=== PATIENT | female | born 1930 | race Caucasian/White ===

== ENCOUNTER → 2016-08-22 | Outpatient (CLI) | payer MEDICARE, BC ==
--- NOTE | 2016-08-22 14:34 | XR ---
EXAMINATION TYPE: XR chest 2V DATE OF EXAM: 08/22/2016 2:15 PM COMPARISON: Prior chest x-ray March 31, 2016. HISTORY: Cough TECHNIQUE: Frontal and lateral views of the chest are obtained. FINDINGS: There is chronic parenchymal change without suspicious focal air space opacity, pleural ef fusion, or pneumothorax seen. The cardiac silhouette size is stable and within normal limits. The osseous structures are demineralized. IMPRESSION: Chronic changes without acute pulmonary process. No significant change from prior.
== END | disposition home or self-care (01) ==
LOC: RADXRMAIN 13:55
PROVIDERS: ATTEND Family Medicine
DX: J44.1 Chronic obstructive pulmonary disease with (acute) exacerbation (principal); R91.8 Other nonspecific abnormal finding of lung field
CPT/HCPCS: 71020

== ENCOUNTER → 2016-12-01 | Outpatient (CLI) | payer MEDICARE, BC ==
--- NOTE | 2016-12-01 10:01 | CT ---
EXAMINATION TYPE: CT sinus wo con DATE OF EXAM: 12/01/2016 9:40 AM COMPARISON: NONE HISTORY: Chronic Sinusitis CT DLP: 622.3 mGycm CONTRAST: 0 mL of Omnipaque 300 The paranasal sinuses are examined in the axial plane at 2 mm thick sections. Reconstructed images i n the coronal plane were obtained. There is dental amalgam scatter artifact Mucous retention cyst in mucosal thickening is within the bilateral maxillary sinuses. Note is made o f bilateral hermelindo bullosa. The ethmoid air cells are clear. The sphenoid sinuses are clear. The f rontal sinuses are clear. The septum is evaluated. There is septal deviation to the right. The ostiomeatal units are patent. Note is made of hyperostosis frontalis internus, normal variant. IMPRESSIONS: 1. Mucosal thickening and small retention cyst within the bilateral maxillary sinuses.
--- NOTE | 2016-12-01 10:17 | FL ---
Esophagram INDICATION: Cough, phlegm buildup TECHNIQUE: Double air contrast technique Double air-contrast technique is utilized to evaluate the esophagus. Esophagus dilates to normal caliber has normal contour to the gastroesophageal junction. Gastroesopha geal junction opens to normal caliber. Tiny hiatal hernia is present. There is complete stripping of the esophageal bolus in the horizontal drinking position. Couple of tertiary contractions may be pres ent during the examination. No reflux was identified. IMPRESSIONS: 1. Very minimal presbyesophagus. 2. Small hiatal hernia
== END | disposition home or self-care (01) ==
LOC: RADCTMAIN 09:20
PROVIDERS: ATTEND Otolaryngology
DX: J34.1 Cyst and mucocele of nose and nasal sinus (principal); J34.89 Other specified disorders of nose and nasal sinuses; R05 Cough
CPT/HCPCS: 70486; 74220

== ENCOUNTER → 2017-07-02 | Outpatient (CLI) | payer MEDICARE, BC ==
--- NOTE | 2017-07-03 09:40 | MM ---
Reason for exam: screening (asymptomatic). Last mammogram was performed 1 year and 2 months ago. History: Patient is postmenopausal. Physical Findings: A clinical breast exam by your physician is recommended on an annual basis and results should be correlated with mammographic findings. MG Screening Mammo w CAD Bilateral CC and MLO view(s) were taken. Prior study comparison: April 22, 2016, bilateral MG screening mammo w CAD. March 05, 2015, bilateral MG screening mammo w CAD. There are scattered fibroglandular densities. Finding: There are typically benign calcifications in both breasts. No significant changes in finding since April 22, 2016 and March 05, 2015. ASSESSMENT: Benign, BI-RAD 2 RECOMMENDATION: Routine screening mammogram of both breasts in 1 year.
== END | disposition home or self-care (01) ==
LOC: RADMAMWWP 13:39
PROVIDERS: ATTEND Family Medicine
DX: Z12.31 Encounter for screening mammogram for malignant neoplasm of breast (principal)

== ENCOUNTER → 2017-08-19 | Outpatient (CLI) | payer MEDICARE ==
[2017-08-19 10:32] LABS: Basophils % (A) 0 %; Eosinophils # (A) 0.1 k/uL (0-0.7); Eosinophils % (A) 1 %; HCT 40.4 % (34.0-46.0); Lymphocytes # (A) 1.6 k/uL (1.0-4.8); Lymphocytes % (A) 19 %; MCH 32.1 pg (25.0-35.0); MCHC 32.2 g/dL (31.0-37.0); MCV 99.8 fL (80.0-100.0); Mean Platelet Volume 7.1; Monocytes # (A) 0.6 k/uL (0-1.0); Monocytes % (A) 7 %; Neutrophils # (A) 5.7 k/uL (1.3-7.7); Neutrophils % (A) 70 %; Platelet Count 211 k/uL (150-450); RBC 4.05 m/uL (3.80-5.40); RDW 12.9 % (11.5-15.5); WBC 8.2 k/uL (3.8-10.6)
[2017-08-19 11:00] LABS: Albumin 3.9 g/dL (3.5-5.0); Calcium 10.4 mg/dL (8.4-10.2); Magnesium 2.2 mg/dL (1.6-2.3); Potassium 5.2 mmol/L (3.5-5.1); Total Bilirubin 0.5 mg/dL (0.2-1.3); Total Protein 6.5 g/dL (6.3-8.2)
[2017-08-19 11:14] LABS: T4, Free (Free Thyroxine) 1.25 ng/dL (0.78-2.19)
[2017-08-19 16:08] LABS: Iron Saturation 37.58 (12.00-45.00)
[2017-08-19 16:17] LABS: Vitamin D 25 Hydroxy 32.1 ng/mL (30.0-100.0)
== END | disposition home or self-care (01) ==
LOC: LABWHC1 09:36
PROVIDERS: ATTEND Family Medicine
DX: N18.3 Chronic kidney disease, stage 3 (moderate) (principal); M85.9 Disorder of bone density and structure, unspecified; J44.9 Chronic obstructive pulmonary disease, unspecified; R25.2 Cramp and spasm
CPT/HCPCS: 36415; 80053; 80061; 82306; 82550; 82607; 83540; 83550; 83735; 84439; 84443; 85025

== ENCOUNTER → 2017-09-08 | Outpatient (CLI) | payer MEDICARE ==
--- NOTE | 2017-09-08 11:21 | US ---
EXAMINATION TYPE: US kidneys/renal and bladder DATE OF EXAM: 09/08/2017 COMPARISON: NONE CLINICAL HISTORY: Stage 3 Chronic Kidney Disease N18.3. EXAM MEASUREMENTS: Right Kidney: 8.5 x 3.3 x 3.9 cm Left Kidney: 7.5 x 3.7 x 3.3 cm Post Void Residual Volume: no post void collection identified Right Kidney: Inferior pole obscured by bowel gas, No hydronephrosis or masses seen, atrophied Left Kidney: very lobular contour, inferior pole obscured by bowel gas, prominent renal pelvis, atrop hied Bladder: wnl Bilateral Jets seen: right seen, left not visualized Normal Post Void Residual: unable to see an fluid post void, however some overlying bowel gas obscu ring area There is no evidence for hydronephrosis at this point in time. Mild fullness left renal pelvis withou t alexis hydronephrosis. No nephrolithiasis is seen. No masses are identified. The urinary bladder i s anechoic. IMPRESSION: 1. Atrophic kidneys. 2.Mild fullness left renal pelvis without alexis hydronephrosis.
== END | disposition home or self-care (01) ==
LOC: RADUSMAIN 09:19
PROVIDERS: ATTEND Family Medicine
DX: N26.1 Atrophy of kidney (terminal) (principal); R93.41 Abnormal radiologic findings on diagnostic imaging of renal pelvis, ureter, or bladder; N18.3 Chronic kidney disease, stage 3 (moderate)
CPT/HCPCS: 76770

== ENCOUNTER → 2017-09-16 | Outpatient (CLI) | payer MEDICARE ==
--- NOTE | 2017-09-16 14:25 | CT ---
EXAMINATION TYPE: CT abdomen pelvis wo con DATE OF EXAM: 09/16/2017 HISTORY: Follow up for abnormal US. No complaints at time of scan CT DLP: 855 mGycm. Automated Exposure Control for Dose Reduction was Utilized. TECHNIQUE: CT scan of the abdomen and pelvis is performed without oral or IV contrast. COMPARISON: Renal ultrasound September 08, 2017 FINDINGS: Within the limitations of a non-contrast study, the following observations are made. LUNG BASES: There is coronary artery calcification in the RCA distribution. There is tiny pericardial effusion there are apex. There is mild chronic emphysematous change with scattered bibasilar scarrin g and/or fibrosis. LIVER/GB: No significant abnormality is appreciated. PANCREAS: No significant abnormality is seen. SPLEEN: No significant abnormality is seen. ADRENALS: No significant abnormality is seen. KIDNEYS: Correlating with ultrasound there is some atrophy and cortical thinning in both kidneys with left kidney smaller in size versus right kidney with similar measurements noted on coronal images ve rsus ultrasound. No hydronephrosis however is seen bilaterally on CT. No suspicious renal masses are present. BOWEL: Debris-filled stomach suggest recent meal ingestion. There is no suspicious small or large bow el dilatation. Diverticulosis in the sigmoid colon is identified without CT evidence for acute divert iculitis. Normal-appearing appendix is seen from the cecum in the right upper pelvis. GENITAL ORGANS: Uterus is surgically absent or markedly atrophic in appearance. LYMPH NODES: No greater than 1cm abdominal or pelvic lymph nodes are appreciated. OSSEOUS STRUCTURES: Osseous structures are demineralized. Underlying scoliosis is present. There is h emangioma involving right L1 vertebra. There is marked disc space narrowing L4-L5 and L5-S1 levels wi th vacuum disc phenomenon. There is moderate joint space loss in both hips. OTHER: There is moderate calcified plaque of aorta extending into branch vessels. IMPRESSION: Chronic medical renal disease in both kidneys without hydronephrosis identified bilateral ly.
== END | disposition home or self-care (01) ==
LOC: RADCTMAIN 13:00
PROVIDERS: ATTEND Family Medicine
DX: N18.9 Chronic kidney disease, unspecified (principal); Q63.1 Lobulated, fused and horseshoe kidney
CPT/HCPCS: 74176

== ENCOUNTER → 2017-11-10 | Outpatient (CLI) | payer MEDICARE ==
--- NOTE | 2017-11-10 23:20 | US ---
EXAMINATION TYPE: US carotid duplex BILAT DATE OF EXAM: 11/10/2017 COMPARISON: NONE CLINICAL HISTORY: 87-year-old female G45.9 Transient cerebral ischemic attack, unspecified. Patient s tated TIA was 10 to 15 years ago. TECHNIQUE: Carotid duplex ultrasound examination. Indirect Doppler criteria was utilized. FINDINGS: EXAM MEASUREMENTS: RIGHT: Peak Systolic Velocity (PSV) cm/sec ----- Right CCA: 56.4 ----- Right ICA: 82.0 ----- Right ECA: 88.1 ICA/CCA ratio: 1.5 RIGHT: End Diastole cm/sec ----- Right CCA: 0.0 ----- Right ICA: 13.8 ----- Right ECA: 0.0 LEFT: Peak Systolic Velocity (PSV) cm/sec ----- Left CCA: 67.7 ----- Left ICA: 71.2 ----- Left ECA: 80.2 ICA/CCA ratio: 1.1 LEFT: End Diastole cm/sec ----- Left CCA: 14.5 ----- Left ICA: 12.7 ----- Left ECA: 12.2 VERTEBRALS (direction of flow): Right Vertebral: Antegrade Left Vertebral: Antegrade Rhythm: Normal Auditing Manager notes: Mild to moderate intimal wall changes at bilateral carotid bifurcation, but PSV is wnl bilaterally. IMPRESSION: No hemodynamically significant stenosis appreciated in either internal carotid artery. Criteria for Assigning % of Stenosis / Diameter reduction (Estimation based on the indirect measurements of the internal carotid artery velocities (ICA PSV). 1. Normal (no stenosis)=ICA PSV < 125 cm/s: ratio < 2.0: ICA EDV<40 cm/s. 2. Less than 50% stenosis=ICA PSV < 125 cm/s: ratio < 2.0: ICA EDV<40 cm/s. 3. 50 to 69% stenosis=ICA PSV of 125 to 230 cm/s: ration 2.0 ? 4.0: ICA EDV 40-100 cm/s. 4. Greater than 70% stenosis to near occlusion= ICA PSV > 230 cm/s: ratio > 4.0: ICA EDV > 100 cm/s. 5. Near occlusion= ICA PSV velocities may be low or undetectable: variable ratio and ICA EDV. 6. Total occlusion=unable to detect flow.
== END | disposition home or self-care (01) ==
LOC: RADUSWWP 15:13
PROVIDERS: ATTEND Internal Medicine Geriatric Medicine
DX: G45.9 Transient cerebral ischemic attack, unspecified (principal)
CPT/HCPCS: 93880

== ENCOUNTER → 2018-06-01 | Outpatient (CLI) | payer MEDICARE ==
[2018-06-01 11:13] LABS: Albumin 3.7 g/dL (3.5-5.0); Calcium 9.9 mg/dL (8.4-10.2); Phosphorus 3.8 mg/dL (2.5-4.5); Potassium 5.1 mmol/L (3.5-5.1); Total Bilirubin 0.5 mg/dL (0.2-1.3); Total Protein 6.5 g/dL (6.3-8.2); Uric Acid 6.1 mg/dL (3.7-7.4)
[2018-06-01 11:29] LABS: T4, Free (Free Thyroxine) 1.18 ng/dL (0.78-2.19)
[2018-06-01 11:45] LABS: Basophils % (A) 0 %; Eosinophils # (A) 0.1 k/uL (0-0.7); Eosinophils % (A) 1 %; HCT 39.1 % (34.0-46.0); Lymphocytes # (A) 1.4 k/uL (1.0-4.8); Lymphocytes % (A) 19 %; MCH 33.2 pg (25.0-35.0); MCHC 33.2 g/dL (31.0-37.0); MCV 100.2 fL (80.0-100.0); Mean Platelet Volume 7.5; Monocytes # (A) 0.5 k/uL (0-1.0); Monocytes % (A) 7 %; Neutrophils # (A) 5.1 k/uL (1.3-7.7); Neutrophils % (A) 71 %; Platelet Count 205 k/uL (150-450); RDW 12.5 % (11.5-15.5); WBC 7.3 k/uL (3.8-10.6)
[2018-06-01 21:26] LABS: Hemoglobin A1C 6.1 % (4.0-6.0)
== END | disposition home or self-care (01) ==
LOC: LABWHC1 09:46
PROVIDERS: ATTEND Family Medicine
DX: I12.9 Hypertensive chronic kidney disease with stage 1 through stage 4 chronic kidney disease, or unspecified chronic kidney disease (principal); N18.3 Chronic kidney disease, stage 3 (moderate); E78.5 Hyperlipidemia, unspecified; R73.01 Impaired fasting glucose
CPT/HCPCS: 36415; 80053; 80061; 83036; 84100; 84439; 84443; 84550; 85025

== ENCOUNTER → 2018-06-22 | Outpatient (CLI) | payer MEDICARE ==
--- NOTE | 2018-06-22 13:06 | MM ---
Reason for exam: screening (asymptomatic). Last mammogram was performed 1 year ago. History: Patient is postmenopausal. Physical Findings: A clinical breast exam by your physician is recommended on an annual basis and results should be correlated with mammographic findings. MG 3D Screening Mammo W/Cad Bilateral CC and MLO view(s) were taken. Prior study comparison: July 02, 2017, bilateral MG screening mammo w CAD. April 22, 2016, bilateral MG screening mammo w CAD. There are scattered fibroglandular densities. There are benign appearing vascular calcifications bilaterally. There is no discrete abnormality. ASSESSMENT: Benign, BI-RAD 2 RECOMMENDATION: Routine screening mammogram of both breasts in 1 year.
== END ==
LOC: RADMAMWWP 09:51
PROVIDERS: ATTEND Family Medicine
DX: Z12.31 Encounter for screening mammogram for malignant neoplasm of breast (principal)
CPT/HCPCS: 77063; 77067

== ENCOUNTER → 2018-06-28 | Outpatient (CLI) | payer MEDICARE ==
--- NOTE | 2018-06-28 15:41 | BD ---
EXAMINATION TYPE: Axial Bone Density DATE OF EXAM: 06/28/2018 COMPARISON: NONE CLINICAL HISTORY: Known osteoporosis, M 81.0 Height: 4 FT 4 IN Weight: 155 RISK FACTORS HISTORY OF: Active: YES Postmenopausal woman: PART HYST AGE 39 Lost more than 2 inches in height since high school: YES MEDICATIONS: Additional Medications: BLOOD PRESSURE MEDS, CHOLESEROL MEDS, XANAX,BABY ASPIRIN, MONTELKAST, CALCIUM , VALSARTAN, Additional History: EXAM MEASUREMENTS: Bone mineral densitometry was performed using the Exhibition A System. Bone mineral density as measured about the Lumbar spine is: ----- L1-L4(G/cm2): 1.057 T Score Values are as follows: ----- L2: -0.5 ----- L3: -1.1 ----- L4: 0.6 ----- L1-L4: -0.4 Bone mineral density has: INCREASED 3.6 % since study of: 2015 Bone mineral density about the R hip (g/cm2): 0.952 Bone mineral density about the L hip (g/cm2): 0.926 T Score values are as follows: -----R Neck: -0.6 -----L Neck: -0.8 -----R Total: 0.0 -----L Total: -0.2 Bone mineral density has: DECREASED -4.6 % since study of: 2015 IMPRESSION: Osteopenia (T Score between -2.5 and -1) at L3. There is slightly increased risk of fracture and the patient may be considered for treatment. Re-Screen 2-5 years. NOTE: T-SCORE=SD OF THE YOUNG ADULT MEAN.
== END ==
LOC: RADBDWWP 14:27
PROVIDERS: ATTEND Family Medicine
DX: M85.80 Other specified disorders of bone density and structure, unspecified site (principal); M89.9 Disorder of bone, unspecified
CPT/HCPCS: 77080

== ENCOUNTER 2018-09-28 10:59 | Inpatient (IN) | payer MEDICARE ==
--- NOTE | 2018-09-28 11:33 | ED ---
General Adult HPI - General Chief complaint: Weakness Stated complaint: weak/SOB/chills Time Seen by Provider: 09/28/18 11:25 Source: patient, family, RN notes reviewed Mode of arrival: wheelchair Limitations: no limitations - History of Present Illness Initial comments: Patient is a pleasant 87-year-old female presenting to the emergency Department with complaints of cough and dyspnea. Symptoms started several days ago. Patient did see her doctor and states she was diagnosed with a virus and given azithromycin. Patient has continued cough. Cough has yellow sputum, occasionally green. Patient has chills. Patient does have some shortness of breath that increases with exertion, even after walking only 10 feet or so. No leg pain or leg swelling. No chest pain. - Related Data Home Medications Medication Instructions Recorded Confirmed Aspirin EC [Ecotrin Low Dose] 162 mg PO HS 10/05/15 09/28/18 Atorvastatin [Lipitor] 10 mg PO HS 10/05/15 09/28/18 Calcium/Magnesium/Zinc 1 tab PO DAILY 10/05/15 09/28/18 [Kzqoluw-Ijjlnawte-Yclv Tablet] Multivit-Min/FA/Lycopen/Lutein 1 tab PO DAILY 10/05/15 09/28/18 [Centrum Silver Tablet] ALPRAZolam [Xanax] 0.25 mg PO BID PRN 11/18/15 09/28/18 Carboxymethylcellulose Sodium 1 drop BOTH EYES QID PRN 09/28/18 09/28/18 [Refresh Tears] Cyanocobalamin (Vitamin B-12) 1,000 mcg PO MOWEFR 09/28/18 09/28/18 [Vitamin B-12] Fluticasone Nasal [place] [Flonase 1 spray EA NOSTRIL HS 09/28/18 09/28/18 Nasal [place]] Glucosamine-Chondr 500-400Mg 1 tab PO DAILY 09/28/18 09/28/18 Montelukast Sodium [Singulair] 10 mg PO HS 09/28/18 09/28/18 Valsartan 80 mg PO HS 09/28/18 09/28/18 Allergies Allergy/AdvReac Type Severity Reaction Status Date / Time No Known Allergies Allergy Verified 09/28/18 12:36 Review of Systems ROS Statement: Those systems with pertinent positive or pertinent negative responses have been documented in the HPI. ROS Other: All systems not noted in ROS Statement are negative. Constitutional: Reports: chills Eyes: Denies: eye pain ENT: Denies: ear pain Respiratory: Reports: cough, dyspnea Cardiovascular: Denies: chest pain Endocrine: Reports: fatigue Gastrointestinal: Denies: abdominal pain Genitourinary: Denies: dysuria Musculoskeletal: Denies: back pain Skin: Denies: rash Neurological: Denies: headache Past Medical History Past Medical History: CVA/TIA, GERD/Reflux, Hyperlipidemia, Hypertension, Osteoarthritis (OA) Additional Past Medical History / Comment(s): CONSTIPATION, TIA History of Any Multi-Drug Resistant Organisms: None Reported Past Surgical History: Joint Replacement, Orthopedic Surgery Additional Past Surgical History / Comment(s): NITO CATARACTS,NITO KNEE REPLACMENT ,TOTAL HYSTERECTOMY.d and c Past Anesthesia/Blood Transfusion Reactions: No Reported Reaction Past Psychological History: Anxiety Smoking Status: Never smoker Past Alcohol Use History: Rare Past Drug Use History: None Reported - Past Family History Father Family Medical History: CVA/TIA Mother Family Medical History: CVA/TIA Son(s) Family Medical History: Diabetes Mellitus Sister(s) Family Medical History: Cancer, Diabetes Mellitus General Exam Limitations: no limitations General appearance: alert, in no apparent distress Head exam: Present: atraumatic Eye exam: Present: normal appearance, PERRL ENT exam: Present: normal oropharynx Neck exam: Present: normal inspection Respiratory exam: Present: rales (Mild right base) Cardiovascular Exam: Present: regular rate, normal rhythm GI/Abdominal exam: Present: soft. Absent: distended, tenderness Extremities exam: Present: normal inspection. Absent: pedal edema, calf tenderness Neurological exam: Present: alert Psychiatric exam: Present: normal affect, normal mood Skin exam: Present: normal color Course Vital Signs 09/28/18 11:18 Temperature 99.3 F Pulse Rate 70 Respiratory 16 Rate Blood Pressure 119/69 O2 Sat by Pulse 84 L Oximetry Medical Decision Making - Medical Decision Making Patient reevaluated and is resting somewhat more comfortably in bed. Patient and family are updated on results and plan. Case was discussed in detail with Dr. Vyas, who will admit her patient with IV antibiotics and steroids and nebulizer treatments. - Lab Data Result diagrams: 09/28/18 11:55 09/28/18 11:55 Lab Results 09/28/18 09/28/18 09/28/18 Range/Units 11:55 11:55 11:55 WBC 19.8 H (3.8-10.6) k/uL RBC 3.96 (3.80-5.40) m/uL Hgb 12.6 (11.4-16.0) gm/dL Hct 39.0 (34.0-46.0) % MCV 98.5 (80.0-100.0) fL MCH 31.7 (25.0-35.0) pg MCHC 32.2 (31.0-37.0) g/dL RDW 13.0 (11.5-15.5) % Plt Count 252 (150-450) k/uL Neutrophils % 90 % Lymphocytes % 6 % Monocytes % 3 % Eosinophils % 0 % Basophils % 0 % Neutrophils # 17.8 H (1.3-7.7) k/uL Lymphocytes # 1.1 (1.0-4.8) k/uL Monocytes # 0.6 (0-1.0) k/uL Eosinophils # 0.0 (0-0.7) k/uL Basophils # 0.0 (0-0.2) k/uL PT (9.0-12.0) sec INR (<1.2) APTT (22.0-30.0) sec Sodium 138 (137-145) mmol/L Potassium 4.5 (3.5-5.1) mmol/L Chloride 108 H (98-107) mmol/L Carbon Dioxide 20 L (22-30) mmol/L Anion Gap 10 mmol/L BUN 27 H (7-17) mg/dL Creatinine 1.11 H (0.52-1.04) mg/dL Est GFR (CKD-EPI)AfAm 52 (>60 ml/min/1.73 sqM) Est GFR (CKD-EPI)NonAf 45 (>60 ml/min/1.73 sqM) Glucose 105 H (74-99) mg/dL Plasma Lactic Acid Sammy (0.7-2.0) mmol/L Calcium 10.4 H (8.4-10.2) mg/dL Total Bilirubin 0.7 (0.2-1.3) mg/dL AST 29 (14-36) U/L ALT 29 (9-52) U/L Alkaline Phosphatase 80 (38-126) U/L Total Protein 6.8 (6.3-8.2) g/dL Albumin 3.9 (3.5-5.0) g/dL Influenza Type A RNA Not Detected (Not Detectd) Influenza Type B (PCR) Not Detected (Not Detectd) 09/28/18 09/28/18 Range/Units 11:55 11:57 WBC (3.8-10.6) k/uL RBC (3.80-5.40) m/uL Hgb (11.4-16.0) gm/dL Hct (34.0-46.0) % MCV (80.0-100.0) fL MCH (25.0-35.0) pg MCHC (31.0-37.0) g/dL RDW (11.5-15.5) % Plt Count (150-450) k/uL Neutrophils % % Lymphocytes % % Monocytes % % Eosinophils % % Basophils % % Neutrophils # (1.3-7.7) k/uL Lymphocytes # (1.0-4.8) k/uL Monocytes # (0-1.0) k/uL Eosinophils # (0-0.7) k/uL Basophils # (0-0.2) k/uL PT 9.8 (9.0-12.0) sec INR 0.9 (<1.2) APTT 19.1 L (22.0-30.0) sec Sodium (137-145) mmol/L Potassium (3.5-5.1) mmol/L Chloride (98-107) mmol/L Carbon Dioxide (22-30) mmol/L Anion Gap mmol/L BUN (7-17) mg/dL Creatinine (0.52-1.04) mg/dL Est GFR (CKD-EPI)AfAm (>60 ml/min/1.73 sqM) Est GFR (CKD-EPI)NonAf (>60 ml/min/1.73 sqM) Glucose (74-99) mg/dL Plasma Lactic Acid Sammy 1.6 (0.7-2.0) mmol/L Calcium (8.4-10.2) mg/dL Total Bilirubin (0.2-1.3) mg/dL AST (14-36) U/L ALT (9-52) U/L Alkaline Phosphatase (38-126) U/L Total Protein (6.3-8.2) g/dL Albumin (3.5-5.0) g/dL Influenza Type A RNA (Not Detectd) Influenza Type B (PCR) (Not Detectd) - Radiology Data Radiology results: image reviewed (Chest x-ray shows diffuse interstitial lung disease. Infectious signs should consider viral or atypical pneumonia. Right hilar prominence.) Disposition Clinical Impression: Interstitial pneumonia Disposition: ADMITTED IP TO THIS HOSP Is patient prescribed a controlled substance at d/c from ED?: No Referrals: Lamar Vyas MD [Primary Care Provider] - 1-2 days Decision Time: 13:50
[2018-09-28] MEDS ORDERED: ACETAMINOPHEN TAB 500 MG TAB PO STA (11:37)
[2018-09-28 12:18] LABS: Basophils % (A) 0 %; Eosinophils % (A) 0 %; HGB 12.6 gm/dL (11.4-16.0); Lymphocytes # (A) 1.1 k/uL (1.0-4.8); Lymphocytes % (A) 6 %; MCH 31.7 pg (25.0-35.0); MCHC 32.2 g/dL (31.0-37.0); MCV 98.5 fL (80.0-100.0); Mean Platelet Volume 6.7; Monocytes # (A) 0.6 k/uL (0-1.0); Monocytes % (A) 3 %; Neutrophils # (A) 17.8 k/uL (1.3-7.7); Neutrophils % (A) 90 %; Platelet Count 252 k/uL (150-450); RBC 3.96 m/uL (3.80-5.40); WBC 19.8 k/uL (3.8-10.6)
[2018-09-28 12:28] LABS: Albumin 3.9 g/dL (3.5-5.0); Calcium 10.4 mg/dL (8.4-10.2); Potassium 4.5 mmol/L (3.5-5.1); Total Bilirubin 0.7 mg/dL (0.2-1.3); Total Protein 6.8 g/dL (6.3-8.2)
[2018-09-28 12:36] LABS: INR 0.9 (<1.2); Prothrombin Time 9.8 sec (9.0-12.0)
[2018-09-28 12:39] LABS: Partial Thromboplastin Time 19.1 sec (22.0-30.0)
--- NOTE | 2018-09-28 12:46 | XR ---
EXAMINATION TYPE: XR chest 2V DATE OF EXAM: 09/28/2018 COMPARISON: 08/22/2016 HISTORY: 87-year-old female with fever TECHNIQUE: PA and lateral views FINDINGS: Heart upper limits of normal in size. Aorta within normal limits. New diffuse interstitial opacities. Right hilar prominence. Subtle more patchy at the right midlung. Essentially mid thoracic kyphosis i s similar. No pleural effusion. IMPRESSION: 1. New diffuse interstitial lung disease. If there are infectious signs/symptoms, findings could repr esent viral or other atypical pneumonias. 2. Follow-up after treatment to ensure clearance and to reassess the right hilum. If right hilar prom inence persists, contrast-enhanced CT would be recommended.
[2018-09-28] MEDS ORDERED: IPRATROPIUM-ALBUTEROL 3 ML NEB INHALATION PRN (13:50)
[2018-09-28] MEDS ORDERED: PNEUMONIA PROTOCOL UTILIZED 1 EACH MISC PO PRN (13:50)
[2018-09-28] MEDS ORDERED: methylPREDNISolone SOD SUCCI 125 MG/2 ML VIAL IV STA (13:52)
[2018-09-28] MEDS ORDERED: AZITHROMYCIN 500 MG in SODIUM CHLORIDE 0.9% 250 ML IVPB STA (13:54)
[2018-09-28 14:45] LABS: Amorphous Sediment,Urine Rare /hpf; Appearance,Urine Cloudy (Clear); Bacteria,Urine Rare /hpf; Bilirubin,Urine Negative (Negative); Blood,Urine Trace (Negative); Color,Urine Yellow; Glucose,Urine (UA) Negative (Negative); Hyaline Casts,Urine 21 /lpf (0-2); Ketones,Urine 1+ (Negative); Leukocyte Esterase,Urine Trace (Negative); Mucus,Urine Few /hpf; Nitrite,Urine Negative (Negative); Protein,Urine 1+ (Negative); RBC,Urine 5 /hpf (0-5); Specific Gravity,Urine 1.021 (1.001-1.035); Squamous Epithelial Cell,Urine 1 /hpf (0-4); Urobilinogen,Urine <2.0 mg/dL (<2.0); WBC,Urine 4 /hpf (0-5)
[2018-09-28] MEDS ORDERED: ARTIFICIAL TEARS-HYPROMELLOSE DROPS 15 ML BTL BOTH EYES PRN (14:57)
[2018-09-28 15:10] VITALS: BMI 31.1
[2018-09-28] MEDS: IPRATROPIUM-ALBUTEROL 3 ML NEB INHALATION SCH ×2 (16:47→21:10)
[2018-09-28] MEDS: INSULIN ASPART (NovoLOG) 100 UNIT/ML VIAL SQ SCH ×2 (17:10→21:09)
[2018-09-28] MEDS: methylPREDNISolone SOD SUCCI 125 MG/2 ML VIAL IV SCH ×2 (17:11→23:51)
[2018-09-28 17:14] LABS: Glucose,Whole Blood 129 mg/dL (75-99)
[2018-09-28 20:58] LABS: Glucose,Whole Blood 190 mg/dL (75-99)
[2018-09-28] MEDS: ATORVASTATIN 10 MG TAB PO SCH (21:08)
[2018-09-28] MEDS: ASPIRIN 81 MG PO SCH (21:08)
[2018-09-28] MEDS: FLUTICASONE 50MCG/SPRAY NASAL 16GM EA NOSTRIL SCH (21:08)
[2018-09-28] MEDS: MONTELUKAST 10 MG TAB PO SCH (21:09)
[2018-09-28] MEDS: VALSARTAN 80 MG TAB PO SCH (21:10)
[2018-09-28 22:15] LABS: Hemoglobin A1C 6.2 % (4.0-6.0)
[2018-09-29] MEDS: methylPREDNISolone SOD SUCCI 125 MG/2 ML VIAL IV SCH ×4 (05:22→23:46)
[2018-09-29] MEDS: IPRATROPIUM-ALBUTEROL 3 ML NEB INHALATION SCH ×4 (07:28→19:19)
[2018-09-29] MEDS: INSULIN ASPART (NovoLOG) 100 UNIT/ML VIAL SQ SCH ×4 (07:38→22:02)
[2018-09-29 07:39] LABS: Glucose,Whole Blood 156 mg/dL (75-99)
[2018-09-29] MEDS: AZITHROMYCIN 500 MG TAB PO SCH (07:40)
[2018-09-29] MEDS: Calcium-Magnesium-Zinc Tablet PO SCH (07:41)
[2018-09-29] MEDS: ALPRAZolam 0.25 MG TAB PO PRN (07:42)
--- NOTE | 2018-09-29 08:23 | XR ---
EXAMINATION TYPE: XR chest 2V DATE OF EXAM: 09/29/2018 COMPARISON: 09/28/2018 HISTORY: 87-year-old female follow-up pneumonia TECHNIQUE: Frontal and lateral views FINDINGS: Heart borderline enlarged. Interstitial lung disease persists and may be slightly worsened. Some patc hy posterior basilar density is present on the lateral view. No sizable pleural effusion. Previous right perihilar prominence is not as pronounced on the current study. IMPRESSION: Redemonstrated acute interstitial lung disease which could be secondary to interstitial pulmonary janet ma, interstitial pneumonitis, or atypical pneumonias. Interstitial opacities appear stable to slightl y worsened.
--- NOTE | 2018-09-29 11:34 | CT ---
EXAMINATION TYPE: CT chest wo con DATE OF EXAM: 09/29/2018 COMPARISON: CT 10/05/2015 and radiograph same day HISTORY: 87-year-old female atypical Pneumonia. Difficulty breathing. Assess for pulmonary fibrosis TECHNIQUE: Contiguous high-resolution axial scanning of the chest without IV contrast. 1 mm slice thi ckness with 1 cm gap was utilized per HRCT protocol. Imaging performed in both prone and supine posit ioning. CT DLP: 458 mGycm Automated exposure control for dose reduction was used. FINDINGS: Heart upper limits of normal in size without pericardial effusion. Coronary vessel calcifications are present. Mild atherosclerotic arch calcifications. Right tracheobronchial angle lymph node measures 8 m. No definite thoracic lymphadenopathy by CT size criteria though HRCT technique and lack of contrast limits assessment. Increased interstitial densities diffusely with confluent groundglass particularly in the upper midlu ngs but also with some involvement in the lower lungs. HRCT technique limited for assessment of pulmonary nodules. No pleural effusion. Moderate atherosclerotic calcifications at the thoracoabdominal junction. Visualized upper abdomen sh ows no gross abnormality by HRCT technique. No honeycombing, thickening of the bronchovascular bundle s, or dominant cystic changes. Stable lucency involving the L1 vertebral body. Endplate spondylosis midthoracic spine. IMPRESSION: RETICULAR DENSITIES AND UPPER TO MIDLUNG PREDOMINANT GROUNDGLASS. SOME DIFFERENTIAL CONSIDERATIONS IN CLUDE NSIP, HYPERSENSITIVITY PNEUMONITIS, AND ATYPICAL PNEUMONIAS. FURTHER CLINICAL CORRELATION RECOM MENDED.
[2018-09-29] MEDS: MULTIVITAMINS, THERA 1 EACH TAB PO SCH (11:35)
[2018-09-29] MEDS: CYANOCOBALAMIN 500 MCG TAB PO SCH (11:35)
[2018-09-29 12:41] LABS: Glucose,Whole Blood 192 mg/dL (75-99)
--- NOTE | 2018-09-29 12:44 | P.HPIM ---
History of Present Illness H&P Date: 09/29/18 Chief Complaint: weakness This is an 87-year-old female patient of Dr. Vyas with past medical history of hypertension, hyperlipidemia, mild persistent asthma, generalized osteoarthritis. Patient gives history of onset Thursday at 5 PM of chills lasted for 1-2 hours. This went away but returned on Thursday and she had chills again. She also has had a cough since with some shortness of breath. At that time she was given prescription for azithromycin which did not help. Her cough is productive with green or yellow sputum usually in the mornings but today her sputum is clear. She called the doctor's office on Thursday/Thursday but the office was closed. She came into the [facility] emergency center for evaluation. She was afebrile, blood pressure 119/69, pulse ox 84%. White count was 19.8, BUN 27 creatinine 1.11, blood sugar 105. Influenza testing was negative. Lactic acid normal. Chest x-ray shows new diffuse interstitial lung disease. Could represent viral or atypical pneumonias. There is a hilar prominence persist. [facility] and started on azithromycin and ceftriaxone as well as nebulizer treatments and Pulmicort, IV steroids. Repeat chest x-ray this morning showed redemonstrated acute interstitial lung disease which could represent interstitial pulmonary edema, interstitial pneumonitis or atypical pneumonia. Interstitial opacities appear stable to slightly worse. High-resolution CT of the chest revealed reticular densities and upper to mid lung predominant groundglass. Some differential considerations include an SIP, hypersensitivity pneumonitis and atypical pneumonias. Review of Systems All systems: negative Constitutional: Reports fatigue, Denies chills, Denies fever, Denies poor appetite, Denies weight loss Eyes: denies blurred vision, denies pain Ears, nose, mouth and throat: Denies dysphagia, Denies headache, Denies sore throat, Denies vertigo Cardiovascular: Denies chest pain, Denies dyspnea on exertion, Denies edema, Denies leg edema, Denies lightheadedness, Denies palpitations, Denies shortness of breath, Denies syncope Respiratory: Reports cough, Reports cough with sputum, Reports dyspnea, Reports respiratory infections, Denies excessive sputum, Denies hemoptysis, Denies home oxygen Gastrointestinal: Denies abdominal pain, Denies diarrhea, Denies nausea, Denies vomiting Genitourinary: Denies dysuria, Denies hematuria Musculoskeletal: Denies frequent falls, Denies gait dysfunction, Denies muscle weakness, Denies myalgias Integumentary: Denies pruritus, Denies rash, Denies wounds Neurological: Denies aphasia, Denies change in mentation, Denies confusion, Denies headaches, Denies numbness, Denies seizures, Denies weakness Psychiatric: Denies anxiety, Denies depression Endocrine: Denies fatigue, Denies weight change Past Medical History Past Medical History: CVA/TIA, GERD/Reflux, Hyperlipidemia, Hypertension, Osteoarthritis (OA), Pneumonia Additional Past Medical History / Comment(s): TIA, bilateral pneumonia, UTI with sepsis, arthritis bilateral shoulders/hips, vitamin D Deficiency History of Any Multi-Drug Resistant Organisms: None Reported Past Surgical History: Joint Replacement, Orthopedic Surgery Additional Past Surgical History / Comment(s): NITO CATARACTS/LENS IMPLANTS, NITO KNEE REPLACMENTS, D&C, TOTAL HYSTERECTOMY Past Anesthesia/Blood Transfusion Reactions: No Reported Reaction Smoking Status: Never smoker - Past Family History Father Family Medical History: CVA/TIA Mother Family Medical History: CVA/TIA Son(s) Family Medical History: Diabetes Mellitus Sister(s) Family Medical History: Cancer, Diabetes Mellitus Medications and Allergies Home Medications Medication Instructions Recorded Confirmed Type Aspirin EC [Ecotrin Low Dose] 162 mg PO HS 10/05/15 09/28/18 History Atorvastatin [Lipitor] 10 mg PO HS 10/05/15 09/28/18 History Calcium/Magnesium/Zinc 1 tab PO DAILY 10/05/15 09/28/18 History [Ehkpubq-Cgjmmywbt-Ayrr Tablet] Multivit-Min/FA/Lycopen/Lutein 1 tab PO DAILY 10/05/15 09/28/18 History [Centrum Silver Tablet] ALPRAZolam [Xanax] 0.25 mg PO BID PRN 11/18/15 09/28/18 History Carboxymethylcellulose Sodium 1 drop BOTH EYES QID PRN 09/28/18 09/28/18 History [Refresh Tears] Cyanocobalamin (Vitamin B-12) 1,000 mcg PO MOWEFR 09/28/18 09/28/18 History [Vitamin B-12] Fluticasone Nasal [place] [Flonase 1 spray EA NOSTRIL HS 09/28/18 09/28/18 History Nasal [place]] Glucosamine-Chondr 500-400Mg 1 tab PO DAILY 09/28/18 09/28/18 History Montelukast Sodium [Singulair] 10 mg PO HS 09/28/18 09/28/18 History Valsartan 80 mg PO HS 09/28/18 09/28/18 History Allergies Allergy/AdvReac Type Severity Reaction Status Date / Time No Known Allergies Allergy Verified 09/28/18 12:36 Physical Exam Vitals: Vital Signs Temp Pulse Pulse Pulse Resp BP BP 09/29/18 07:39 68 09/29/18 07:30 68 09/29/18 06:55 98.1 F 65 20 175/82 09/28/18 22:00 98 F 74 20 152/70 09/28/18 21:24 64 09/28/18 21:15 62 09/28/18 16:58 64 09/28/18 16:51 09/28/18 16:48 61 09/28/18 15:00 97.3 F L 80 20 151/72 09/28/18 14:07 71 18 115/76 09/28/18 14:00 136/64 09/28/18 13:50 09/28/18 13:30 108/82 09/28/18 13:01 156/63 09/28/18 12:30 146/68 09/28/18 11:18 99.3 F 70 16 119/69 BP Pulse Ox 09/29/18 07:39 09/29/18 07:30 95 09/29/18 06:55 180/86 94 L 09/28/18 22:00 95 09/28/18 21:24 09/28/18 21:15 09/28/18 16:58 09/28/18 16:51 92 L 09/28/18 16:48 09/28/18 15:00 77 L 09/28/18 14:07 92 L 09/28/18 14:00 91 L 09/28/18 13:50 93 L 09/28/18 13:30 93 L 09/28/18 13:01 92 L 09/28/18 12:30 87 L 09/28/18 11:18 84 L Intake and Output 09/28/18 09/29/18 09/29/18 22:59 06:59 14:59 Intake Total 500 Balance 500 Intake: Oral 500 Other: # Voids 2 Gen: This is an 87-year-old female. She is sitting up in bed and appears to be comfortable. No respiratory distress is noted. HEENT: Head is atraumatic, normocephalic. Pupils equal, round. Sclerae is anicteric. NECK: Supple. No JVD. No lymphadenopathy. No thyromegaly. LUNGS: Rales right sided. No intercostal retractions. HEART: Regular rate and rhythm. No murmur. ABDOMEN: Soft. Bowel sounds are present. No masses. No tenderness. EXTREMITIES: No pedal edema. No calf tenderness. NEUROLOGICAL: Patient is awake, alert and oriented x3. Cranial nerves 2 through 12 are grossly intact. Results CBC & Chem 7: 09/28/18 11:55 09/28/18 11:55 Labs: Abnormal Lab Results - Last 24 Hours (Table) 09/28/18 09/28/18 09/28/18 Range/Units 11:55 11:55 11:55 WBC 19.8 H (3.8-10.6) k/uL Neutrophils # 17.8 H (1.3-7.7) k/uL APTT 19.1 L (22.0-30.0) sec Chloride 108 H (98-107) mmol/L Carbon Dioxide 20 L (22-30) mmol/L BUN 27 H (7-17) mg/dL Creatinine 1.11 H (0.52-1.04) mg/dL Glucose 105 H (74-99) mg/dL POC Glucose (mg/dL) (75-99) mg/dL Hemoglobin A1c (4.0-6.0) % Calcium 10.4 H (8.4-10.2) mg/dL Urine Appearance (Clear) Urine Protein (Negative) Urine Ketones (Negative) Urine Blood (Negative) Ur Leukocyte Esterase (Negative) Amorphous Sediment (None) /hpf Urine Bacteria (None) /hpf Hyaline Casts (0-2) /lpf Urine Mucus (None) /hpf 09/28/18 09/28/18 09/28/18 Range/Units 11:55 14:20 17:08 WBC (3.8-10.6) k/uL Neutrophils # (1.3-7.7) k/uL APTT (22.0-30.0) sec Chloride (98-107) mmol/L Carbon Dioxide (22-30) mmol/L BUN (7-17) mg/dL Creatinine (0.52-1.04) mg/dL Glucose (74-99) mg/dL POC Glucose (mg/dL) 129 H (75-99) mg/dL Hemoglobin A1c 6.2 H (4.0-6.0) % Calcium (8.4-10.2) mg/dL Urine Appearance Cloudy H (Clear) Urine Protein 1+ H (Negative) Urine Ketones 1+ H (Negative) Urine Blood Trace H (Negative) Ur Leukocyte Esterase Trace H (Negative) Amorphous Sediment Rare H (None) /hpf Urine Bacteria Rare H (None) /hpf Hyaline Casts 21 H (0-2) /lpf Urine Mucus Few H (None) /hpf 09/28/18 09/29/18 Range/Units 20:51 06:58 WBC (3.8-10.6) k/uL Neutrophils # (1.3-7.7) k/uL APTT (22.0-30.0) sec Chloride (98-107) mmol/L Carbon Dioxide (22-30) mmol/L BUN (7-17) mg/dL Creatinine (0.52-1.04) mg/dL Glucose (74-99) mg/dL POC Glucose (mg/dL) 190 H 156 H (75-99) mg/dL Hemoglobin A1c (4.0-6.0) % Calcium (8.4-10.2) mg/dL Urine Appearance (Clear) Urine Protein (Negative) Urine Ketones (Negative) Urine Blood (Negative) Ur Leukocyte Esterase (Negative) Amorphous Sediment (None) /hpf Urine Bacteria (None) /hpf Hyaline Casts (0-2) /lpf Urine Mucus (None) /hpf Microbiology - Last 24 Hours (Table) 09/28/18 14:22 Urine Culture - Preliminary Urine,Voided 09/28/18 17:15 Gram Stain - Final Sputum Sputum Culture - Final Thrombosis Risk Factor Assmnt - DVT/VTE Prophylaxis DVT/VTE Prophylaxis: Pharmacologic Prophylaxis ordered - Choose All That Apply Each Factor Represents 1 point: History of:, Obesity (BMI >25), Serious lung disease incl. pneumonia (< 1month) Each Risk Factor Represents 3 Points: Age 75 years or older Other congenital or acquired thrombophilia - If yes, enter type in comment: No Thrombosis Risk Factor Assessment Total Risk Factor Score: 6 Thrombosis Risk Factor Assessment Level: High Risk Assessment and Plan Plan: 1. Acute hypoxic respiratory failure with pulse ox of 84% on room air secondary to hypersensitivity pneumonitis and exacerbation of mild persistent asthma. Chest x-ray and CT as above. Continue DuoNeb treatments 4 times daily and every 4 hours as needed, azithromycin, Pulmicort 1 mg twice daily, ceftriaxone, Flonase, Solu-Medrol 60 mg IV every 6 hours, Singulair 10 mg at bedtime. 2. Mild persistent asthma exacerbated by aerosol sprays. Continue as in #1. 3. Hypertension. Continue valsartan 80 mg at bedtime. 4. Hyperlipidemia. Continue Lipitor 10 mg at bedtime. 5. Generalized osteoarthritis, stable. 6. History of TIA. Continue aspirin, Lipitor. 7. DVT prophylaxis. Lovenox. 8. GI prophylaxis. Pepcid. Patient will be admitted to the hospital for a minimum of 2 night stay. Discharge plan: Most likely return home Impression and plan of care have been directed as dictated by the signing physician. Teetee Keating nurse practitioner acting as scribe for signing physician.
[2018-09-29 17:21] LABS: Glucose,Whole Blood 194 mg/dL (75-99)
[2018-09-29] MEDS: BUDESONIDE 1 MG/2 ML NEBU INHALATION SCH (19:19)
[2018-09-29] MEDS: ASPIRIN 81 MG PO SCH (21:20)
[2018-09-29] MEDS: MONTELUKAST 10 MG TAB PO SCH (21:20)
[2018-09-29] MEDS: VALSARTAN 80 MG TAB PO SCH (21:20)
[2018-09-29] MEDS: ATORVASTATIN 10 MG TAB PO SCH (21:20)
[2018-09-29] MEDS: FLUTICASONE 50MCG/SPRAY NASAL 16GM EA NOSTRIL SCH (21:21)
[2018-09-29 21:24] LABS: Glucose,Whole Blood 280 mg/dL (75-99)
[2018-09-29] MEDS: guaiFENesin-DM 100-10MG/5ML 10 ML CUP PO PRN (21:40)
[2018-09-30] MEDS: methylPREDNISolone SOD SUCCI 125 MG/2 ML VIAL IV SCH ×3 (05:50→17:33)
[2018-09-30 07:05] LABS: Glucose,Whole Blood 153 mg/dL (75-99)
[2018-09-30] MEDS: IPRATROPIUM-ALBUTEROL 3 ML NEB INHALATION SCH ×4 (07:27→19:30)
[2018-09-30] MEDS: BUDESONIDE 1 MG/2 ML NEBU INHALATION SCH ×2 (07:27→19:30)
[2018-09-30] MEDS: INSULIN ASPART (NovoLOG) 100 UNIT/ML VIAL SQ SCH ×4 (08:02→22:56)
[2018-09-30] MEDS: AZITHROMYCIN 500 MG TAB PO SCH (08:06)
[2018-09-30] MEDS: FAMOTIDINE 20 MG TAB PO SCH (08:07)
[2018-09-30] MEDS: ALPRAZolam 0.25 MG TAB PO PRN (08:19)
[2018-09-30] MEDS: ENOXAPARIN 40 MG/0.4 ML SYRINGE SQ SCH (08:20)
[2018-09-30] MEDS: Calcium-Magnesium-Zinc Tablet PO SCH (08:24)
[2018-09-30 09:01] LABS: HCT 35.6 % (34.0-46.0); HGB 11.4 gm/dL (11.4-16.0); MCH 32.3 pg (25.0-35.0); MCV 100.7 fL (80.0-100.0); Mean Platelet Volume 7.2; Platelet Count 292 k/uL (150-450); RBC 3.54 m/uL (3.80-5.40); WBC 21.2 k/uL (3.8-10.6)
[2018-09-30 09:09] LABS: Calcium 10.1 mg/dL (8.4-10.2); Potassium 4.7 mmol/L (3.5-5.1)
[2018-09-30] MEDS: VALSARTAN 160 MG TAB PO SCH (11:05)
[2018-09-30 11:48] LABS: Glucose,Whole Blood 121 mg/dL (75-99)
[2018-09-30] MEDS: MULTIVITAMINS, THERA 1 EACH TAB PO SCH (12:08)
--- NOTE | 2018-09-30 13:10 | P.CONS ---
History of Present Illness - Reason for Consult Consult date: 09/30/18 atypical pneumonia - History of Present Illness This is an 87-year-old female patient with past medical history of hypertension, hyperlipidemia, mild persistent asthma, generalized osteoarthritis. Patient gives history of onset Thursday at 5 PM of chills lasted for 1-2 hours. This went away but returned on Thursday and she had chills again. She also has had a cough since with some shortness of breath. At that time she was given prescription for azithromycin which did not help. Her cough is productive with green or yellow sputum usually in the mornings but today her sputum is clear. She called her doctor's office on Thursday/Thursday but the office was closed. She came into [facility] emergency center for evaluation. She was afebrile, blood pressure 119/69, pulse ox 84%. White count was 19.8, BUN 27 creatinine 1.11, blood sugar 105. Influenza testing was negative. Lactic acid normal. Chest x-ray shows new diffuse interstitial lung disease. Could represent viral or atypical pneumonias. There is a hilar prominence persist. [facility] and started on azithromycin and ceftriaxone as well as nebulizer treatments and Pulmicort, IV steroids. Repeat chest x-ray showed redemonstrated acute interstitial lung disease which could represent interstitial pulmonary edema, interstitial pneumonitis or atypical pneumonia. Interstitial opacities appear stable to slightly worse. High-resolution CT of the chest revealed reticular densities and upper to mid lung predominant groundglass. Some differential considerations include an SIP, hypersensitivity pneumonitis and atypical pneumonias. Concern is for atypical pneumonia and thus this consult was requested. Review of Systems All systems: negative Constitutional: Reports chills, Reports fatigue, Denies fever, Denies poor appetite, Denies weight loss Eyes: denies blurred vision, denies pain Ears, nose, mouth and throat: Denies dysphagia, Denies headache, Denies mouth pain, Denies sore throat, Denies vertigo Cardiovascular: Reports dyspnea on exertion, Denies chest pain, Denies edema, Denies leg edema, Denies lightheadedness, Denies shortness of breath, Denies syncope Respiratory: Reports cough, Reports cough with sputum, Reports dyspnea, Reports respiratory infections, Reports wheezing Gastrointestinal: Denies abdominal pain, Denies diarrhea, Denies loss of appetite, Denies nausea, Denies vomiting Genitourinary: Denies dysuria, Denies hematuria Musculoskeletal: Denies frequent falls, Denies gait dysfunction, Denies myalgias Integumentary: Denies pruritus, Denies rash, Denies wounds Neurological: Denies aphasia, Denies change in mentation, Denies confusion, Denies gait dysfunction, Denies headaches, Denies numbness, Denies seizures, Denies weakness Psychiatric: Denies anxiety, Denies depression Endocrine: Denies fatigue, Denies weight change Past Medical History Past Medical History: CVA/TIA, GERD/Reflux, Hyperlipidemia, Hypertension, Osteoarthritis (OA), Pneumonia Additional Past Medical History / Comment(s): TIA, bilateral pneumonia, UTI with sepsis, arthritis bilateral shoulders/hips, vitamin D Deficiency History of Any Multi-Drug Resistant Organisms: None Reported Past Surgical History: Joint Replacement, Orthopedic Surgery Additional Past Surgical History / Comment(s): NITO CATARACTS/LENS IMPLANTS, NITO KNEE REPLACMENTS, D&C, TOTAL HYSTERECTOMY Past Anesthesia/Blood Transfusion Reactions: No Reported Reaction Smoking Status: Never smoker Additional Past Alcohol Use History / Comment(s): Patient is a lifelong nonsmoker, no marijuana or illicit drug use. No alcohol use. Patient currently lives alone. Her daughter is near if needed. 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. She does not have oxygen or nebulizer. - Past Family History Father Family Medical History: CVA/TIA Mother Family Medical History: CVA/TIA Son(s) Family Medical History: Diabetes Mellitus Sister(s) Family Medical History: Cancer, Diabetes Mellitus Medications and Allergies Home Medications Medication Instructions Recorded Confirmed Type Aspirin EC [Ecotrin Low Dose] 162 mg PO HS 10/05/15 09/28/18 History Atorvastatin [Lipitor] 10 mg PO HS 10/05/15 09/28/18 History Calcium/Magnesium/Zinc 1 tab PO DAILY 10/05/15 09/28/18 History [Pxpcyeh-Cjmrvsgmh-Djxn Tablet] Multivit-Min/FA/Lycopen/Lutein 1 tab PO DAILY 10/05/15 09/28/18 History [Centrum Silver Tablet] ALPRAZolam [Xanax] 0.25 mg PO BID PRN 11/18/15 09/28/18 History Carboxymethylcellulose Sodium 1 drop BOTH EYES QID PRN 09/28/18 09/28/18 History [Refresh Tears] Cyanocobalamin (Vitamin B-12) 1,000 mcg PO MOWEFR 09/28/18 09/28/18 History [Vitamin B-12] Fluticasone Nasal [place] [Flonase 1 spray EA NOSTRIL HS 09/28/18 09/28/18 History Nasal [place]] Glucosamine-Chondr 500-400Mg 1 tab PO DAILY 09/28/18 09/28/18 History Montelukast Sodium [Singulair] 10 mg PO HS 09/28/18 09/28/18 History Valsartan 80 mg PO HS 09/28/18 09/28/18 History Allergies Allergy/AdvReac Type Severity Reaction Status Date / Time No Known Allergies Allergy Verified 09/28/18 12:36 Physical Exam Vitals: Vital Signs Temp Pulse Pulse Resp BP BP Pulse Ox 09/30/18 07:43 72 09/30/18 07:28 68 09/30/18 05:55 98.0 F 68 20 175/79 95 09/29/18 23:00 98.3 F 71 20 154/73 96 09/29/18 19:36 74 09/29/18 19:20 74 09/29/18 15:41 72 09/29/18 15:32 72 09/29/18 13:46 98.8 F 75 20 138/65 96 09/29/18 11:15 68 09/29/18 11:03 64 Intake and Output 09/29/18 09/30/18 09/30/18 22:59 06:59 14:59 Intake Total 350 250 Balance 350 250 Intake: Oral 350 250 Other: # Voids 2 1 Gen: This is an 87-year-old female. She is sitting up in chair and appears to be comfortable. No respiratory distress is noted. HEENT: Head is atraumatic, normocephalic. Pupils equal, round. Sclerae is anicteric. NECK: Supple. No JVD. No lymphadenopathy. No thyromegaly. LUNGS: Rales right sided, expiratory wheeze. No intercostal retractions. HEART: Regular rate and rhythm. No murmur. ABDOMEN: Soft. Bowel sounds are present. No masses. No tenderness. EXTREMITIES: No pedal edema. No calf tenderness. NEUROLOGICAL: Patient is awake, alert and oriented x3. Cranial nerves 2 through 12 are grossly intact. Results Results: Laboratory Results WBC 21.2 k/uL (3.8-10.6) H 09/30/18 08:13 RBC 3.54 m/uL (3.80-5.40) L 09/30/18 08:13 Hgb 11.4 gm/dL (11.4-16.0) 09/30/18 08:13 Hct 35.6 % (34.0-46.0) 09/30/18 08:13 MCV 100.7 fL (80.0-100.0) H 09/30/18 08:13 MCH 32.3 pg (25.0-35.0) 09/30/18 08:13 MCHC 32.0 g/dL (31.0-37.0) 09/30/18 08:13 RDW 13.0 % (11.5-15.5) 09/30/18 08:13 Plt Count 292 k/uL (150-450) 09/30/18 08:13 Neutrophils % 90 % 09/28/18 11:55 Lymphocytes % 6 % 09/28/18 11:55 Monocytes % 3 % 09/28/18 11:55 Eosinophils % 0 % 09/28/18 11:55 Basophils % 0 % 09/28/18 11:55 Neutrophils # 17.8 k/uL (1.3-7.7) H 09/28/18 11:55 Lymphocytes # 1.1 k/uL (1.0-4.8) 09/28/18 11:55 Monocytes # 0.6 k/uL (0-1.0) 09/28/18 11:55 Eosinophils # 0.0 k/uL (0-0.7) 09/28/18 11:55 Basophils # 0.0 k/uL (0-0.2) 09/28/18 11:55 PT 9.8 sec (9.0-12.0) 09/28/18 11:55 INR 0.9 (<1.2) 09/28/18 11:55 APTT 19.1 sec (22.0-30.0) L 09/28/18 11:55 Sodium 137 mmol/L (137-145) 09/30/18 08:13 Potassium 4.7 mmol/L (3.5-5.1) 09/30/18 08:13 Chloride 106 mmol/L (98-107) 09/30/18 08:13 Carbon Dioxide 22 mmol/L (22-30) 09/30/18 08:13 Anion Gap 9 mmol/L 09/30/18 08:13 BUN 27 mg/dL (7-17) H 09/30/18 08:13 Creatinine 0.82 mg/dL (0.52-1.04) 09/30/18 08:13 Est GFR (CKD-EPI)AfAm 75 (>60 ml/min/1.73 sqM) 09/30/18 08:13 Est GFR (CKD-EPI)NonAf 65 (>60 ml/min/1.73 sqM) 09/30/18 08:13 Glucose 219 mg/dL (74-99) H 09/30/18 08:13 POC Glucose (mg/dL) 121 mg/dL (75-99) H 09/30/18 11:46 POC Glu Trackman KARINA Radha [place] 09/30/18 11:[address] Glu mg/dL 131 09/28/18 11:55 Hemoglobin A1c 6.2 % (4.0-6.0) H 09/28/18 11:55 Plasma Lactic Acid Sammy 1.6 mmol/L (0.7-2.0) 09/28/18 11:57 Calcium 10.1 mg/dL (8.4-10.2) 09/30/18 08:13 Total Bilirubin 0.7 mg/dL (0.2-1.3) 09/28/18 11:55 AST 29 U/L (14-36) 09/28/18 11:55 ALT 29 U/L (9-52) 09/28/18 11:55 Alkaline Phosphatase 80 U/L (38-126) 09/28/18 11:55 Total Protein 6.8 g/dL (6.3-8.2) 09/28/18 11:55 Albumin 3.9 g/dL (3.5-5.0) 09/28/18 11:55 Urine Color Yellow 09/28/18 14:20 Urine Appearance Cloudy (Clear) H 09/28/18 14:20 Urine pH 5.0 (5.0-8.0) 09/28/18 14:20 Ur Specific [place] 1.021 (1.001-1.035) 09/28/18 14:20 Urine Protein 1+ (Negative) H 09/28/18 14:20 Urine Glucose (UA) Negative (Negative) 09/28/18 14:20 Urine Ketones 1+ (Negative) H 09/28/18 14:20 Urine Blood Trace (Negative) H 09/28/18 14:20 Urine Nitrite Negative (Negative) 09/28/18 14:20 Urine Bilirubin Negative (Negative) 09/28/18 14:20 Urine Urobilinogen <2.0 mg/dL (<2.0) 09/28/18 14:20 Ur Leukocyte Esterase Trace (Negative) H 09/28/18 14:20 Urine RBC 5 /hpf (0-5) 09/28/18 14:20 Urine WBC 4 /hpf (0-5) 09/28/18 14:20 Ur Squamous Epith Cells 1 /hpf (0-4) 09/28/18 14:20 Amorphous Sediment Rare /hpf (None) H 09/28/18 14:20 Urine Bacteria Rare /hpf (None) H 09/28/18 14:20 Hyaline Casts 21 /lpf (0-2) H 09/28/18 14:20 Urine Mucus Few /hpf (None) H 09/28/18 14:20 Influenza Type A RNA Not Detected (Not Detectd) 09/28/18 11:55 Influenza Type B (PCR) Not Detected (Not Detectd) 09/28/18 11:55 CBC & Chem 7: 09/30/18 08:13 09/30/18 08:13 Labs: Abnormal Lab Results - Last 24 Hours (Table) 09/29/18 09/29/18 09/29/18 Range/Units 12:21 17:11 21:00 BUN (7-17) mg/dL Glucose (74-99) mg/dL POC Glucose (mg/dL) 192 H 194 H 280 H (75-99) mg/dL 09/30/18 09/30/18 Range/Units 07:03 08:13 BUN 27 H (7-17) mg/dL Glucose 219 H (74-99) mg/dL POC Glucose (mg/dL) 153 H (75-99) mg/dL Microbiology - Last 24 Hours (Table) 09/28/18 14:22 Urine Culture - Final Urine,Voided 09/28/18 11:55 Blood Culture - Preliminary Blood No Growth after 24 hours Assessment and Plan Plan: This is an 87-year-old female who presented to the hospital with acute hypoxic respiratory failure with pulse ox of 84% on room air secondary to possible atypical pneumonia and exacerbation of mild persistent asthma. She has been started on IV antibiotics with azithromycin and ceftriaxone as well as nebulizer treatments, IV Solu-Medrol and Pulmicort. Mycoplasma antibody and Legionella antigen are in process. Patient does have hypersensitivity panel in process. Sputum culture is in progress, blood culture showing no growth. Influenza testing is negative. Continue supportive care. Further recommendations as patient progresses. The above dictated assessment and findings were discussed with Dr. Morris. The impression and plan of care have been directed as dictated. Teetee Keating nurse practitioner acting as scribe for Dr. Morris.
--- NOTE | 2018-09-30 15:30 | P.PN ---
Subjective Progress Note Date: 09/30/18 This is an 87-year-old female patient of Dr. Vyas with past medical history of hypertension, hyperlipidemia, mild persistent asthma, generalized osteoarthritis. Patient gives history of onset Thursday at 5 PM of chills lasted for 1-2 hours. This went away but returned on Thursday and she had chills again. She also has had a cough since with some shortness of breath. At that time she was given prescription for azithromycin which did not help. Her cough is productive with green or yellow sputum usually in the mornings but today her sputum is clear. She called the doctor's office on Thursday/Thursday but the office was closed. She came into the [facility] emergency center for evaluation. She was afebrile, blood pressure 119/69, pulse ox 84%. White count was 19.8, BUN 27 creatinine 1.11, blood sugar 105. Influenza testing was negative. Lactic acid normal. Chest x-ray shows new diffuse interstitial lung disease. Could represent viral or atypical pneumonias. There is a hilar prominence persist. Patient was [facility] and started on azithromycin and ceftriaxone as well as nebulizer treatments and Pulmicort, IV steroids. Repeat chest x-ray this morning showed redemonstrated acute interstitial lung disease which could represent interstitial pulmonary edema, interstitial pneumonitis or atypical pneumonia. Interstitial opacities appear stable to slightly worse. High-resolution CT of the chest revealed reticular densities and upper to mid lung predominant groundglass. Some differential considerations include an SIP, hypersensitivity pneumonitis and atypical pneumonias. 09/30: Patient is found sitting up in a chair at the bedside. She continues to have some wheezing and shortness of breath. Consult with Dr. Morris has been added for atypical pneumonia. Mycoplasma, Legionella immunoglobulin E, hypersensitivity panel ordered. Sputum culture is in progress. Urine cultures and finalize with no growth. Blood culture no growth at 48 hours. She continues to have cough with minimal sputum production. Blood pressure is elevated and we will increase valsartan to 160 mg in the morning. Review of Systems All systems: negative Constitutional: Reports fatigue, Denies chills, Denies fever, Denies poor appetite, Denies weight loss Eyes: denies blurred vision, denies pain Ears, nose, mouth and throat: Denies dysphagia, Denies headache, Denies sore throat, Denies vertigo Cardiovascular: Denies chest pain, Denies dyspnea on exertion, Denies edema, Denies leg edema, Denies lightheadedness, Denies palpitations, Denies shortness of breath, Denies syncope Respiratory: Reports cough, Reports cough with sputum, Reports dyspnea, Reports respiratory infections, Denies excessive sputum, Denies hemoptysis, Denies home oxygen Gastrointestinal: Denies abdominal pain, Denies diarrhea, Denies nausea, Denies vomiting Genitourinary: Denies dysuria, Denies hematuria Musculoskeletal: Denies frequent falls, Denies gait dysfunction, Denies muscle weakness, Denies myalgias Integumentary: Denies pruritus, Denies rash, Denies wounds Neurological: Denies aphasia, Denies change in mentation, Denies confusion, Denies headaches, Denies numbness, Denies seizures, Denies weakness Psychiatric: Denies anxiety, Denies depression Endocrine: Denies fatigue, Denies weight change Objective - Vital Signs Vital signs: Vital Signs Temp 98.0 F 09/30/18 05:55 Pulse 72 09/30/18 07:43 Resp 20 09/30/18 05:55 BP 175/79 09/30/18 05:55 Pulse Ox 95 09/30/18 05:55 Intake & Output 09/29/18 09/30/18 09/30/18 18:59 06:59 18:59 Intake Total 600 Balance 600 Weight 69.853 kg Intake: Oral 600 Other: # Voids 2 1 - Exam Gen: This is an 87-year-old female. She is in chair and appears to be comfortable. No respiratory distress is noted. HEENT: Head is atraumatic, normocephalic. Pupils equal, round. Sclerae is anicteric. NECK: Supple. No JVD. No lymphadenopathy. No thyromegaly. LUNGS: Rales right sided. No intercostal retractions. HEART: Regular rate and rhythm. No murmur. ABDOMEN: Soft. Bowel sounds are present. No masses. No tenderness. EXTREMITIES: No pedal edema. No calf tenderness. NEUROLOGICAL: Patient is awake, alert and oriented x3. Cranial nerves 2 through 12 are grossly intact. - Labs CBC & Chem 7: 09/30/18 08:13 09/30/18 08:13 Labs: Abnormal Lab Results - Last 24 Hours (Table) 09/29/18 09/29/18 09/29/18 Range/Units 12:21 17:11 21:00 WBC (3.8-10.6) k/uL RBC (3.80-5.40) m/uL MCV (80.0-100.0) fL BUN (7-17) mg/dL Glucose (74-99) mg/dL POC Glucose (mg/dL) 192 H 194 H 280 H (75-99) mg/dL 09/30/18 09/30/18 09/30/18 Range/Units 07:03 08:13 08:13 WBC 21.2 H (3.8-10.6) k/uL RBC 3.54 L (3.80-5.40) m/uL MCV 100.7 H (80.0-100.0) fL BUN 27 H (7-17) mg/dL Glucose 219 H (74-99) mg/dL POC Glucose (mg/dL) 153 H (75-99) mg/dL Microbiology - Last 24 Hours (Table) 09/28/18 14:22 Urine Culture - Final Urine,Voided 09/28/18 11:55 Blood Culture - Preliminary Blood No Growth after 24 hours Assessment and Plan Plan: 1. Acute hypoxic respiratory failure with pulse ox of 84% on room air secondary to hypersensitivity pneumonitis and exacerbation of mild persistent asthma. Chest x-ray and CT as above. Continue DuoNeb treatments 4 times daily and every 4 hours as needed, azithromycin, Pulmicort 1 mg twice daily, ceftriaxone, Flonase, Solu-Medrol 60 mg IV every 6 hours, Singulair 10 mg at bedtime. Consult with Dr. Morris added. Hypersensitivity panel, IgE, Mycoplasma, Legionella all added. 2. Mild persistent asthma exacerbated by aerosol sprays. Continue as in #1. 3. Hypertension. Continue valsartan 80 mg at bedtime. 4. Hyperlipidemia. Continue Lipitor 10 mg at bedtime. 5. Generalized osteoarthritis, stable. 6. History of TIA. Continue aspirin, Lipitor. 7. DVT prophylaxis. Lovenox. 8. GI prophylaxis. Pepcid. Discharge plan: Most likely return home Impression and plan of care have been directed as dictated by the signing physician. Teetee Keating nurse practitioner acting as scribe for signing physician.
[2018-09-30 17:08] LABS: Glucose,Whole Blood 176 mg/dL (75-99)
[2018-09-30 20:56] LABS: Glucose,Whole Blood 236 mg/dL (75-99)
[2018-09-30] MEDS: ASPIRIN 81 MG PO SCH (21:17)
[2018-09-30] MEDS: FLUTICASONE 50MCG/SPRAY NASAL 16GM EA NOSTRIL SCH (21:18)
[2018-09-30] MEDS: ATORVASTATIN 10 MG TAB PO SCH (21:18)
[2018-09-30] MEDS: MONTELUKAST 10 MG TAB PO SCH (21:18)
--- NOTE | 2018-09-30 22:01 | P.CON ---
Consult Note - . Consult date: 09/30/18 Assessment/Plan:: This is an 87-year-old female patient with past medical history of hypertension, hyperlipidemia, mild persistent asthma, generalized osteoarthritis. Patient gives history of onset Thursday at 5 PM of chills lasted for 1-2 hours. This went away but returned on Thursday and she had chills again. She also has had a cough since with some shortness of breath. At that time she was given prescription for azithromycin which did not help. Her cough is productive with green or yellow sputum usually in the mornings but today her sputum is clear. She called her doctor's office on Thursday/Thursday but the office was closed. She came into [facility] emergency center for evaluation. She was afebrile, blood pressure 119/69, pulse ox 84%. White count was 19.8, BUN 27 creatinine 1.11, blood sugar 105. Influenza testing was negative. Lactic acid normal. Chest x-ray shows new diffuse interstitial lung disease. Could represent viral or atypical pneumonias. There is a hilar prominence persist. Patient was admitted to the [facility] floor and started on azithromycin and ceftriaxone as well as nebulizer treatments and Pulmicort, IV steroids. Repeat chest x-ray showed redemonstrated acute interstitial lung disease which could represent interstitial pulmonary edema, interstitial pneumonitis or atypical pneumonia. Interstitial opacities appear stable to slightly worse. High-resolution CT of the chest revealed reticular densities and upper to mid lung predominant groundglass. Some differential considerations include an SIP, hypersensitivity pneumonitis and atypical pneumonias. Concern is for atypical pneumonia and thus this consult was requested. Please see the consult note is dictated by nurse practitioner Mrs. Teetee Keating. This pleasant 87-year-old woman is history of prior pneumonia with no ongoing significant underlying lung disease. As noted her chest x-ray as well as a computed tomography scan showed evidence of an interstitial pneumonia. Given the sudden onset and symptoms consistent with a viral infection she likely has a viral pneumonia, but not influenza given her negative testing. Sputum assessment for evaluation including a viral panel might be of some utility if can be obtained. She is being treated for atypical pathogens with Rocephin and azithromycin which would include Legionella as well as mycoplasma. Further evaluation for these pathogens has been requested. Continue ongoing supportive care which includes oxygen therapy at this time. Hopefully with the supportive care steroid therapy and respiratory treatments she will resolve the oxygen gradient abnormality rapidly. If she has failure of improvement bronchoscopy with lavage may be required for further intervention. I agree with evaluation, assessment and plan as dictated by nurse practitioner Mrs. Teetee Keating.
[2018-09-30] MEDS: guaiFENesin-DM 100-10MG/5ML 10 ML CUP PO PRN (22:55)
[2018-10-01] MEDS: methylPREDNISolone SOD SUCCI 125 MG/2 ML VIAL IV SCH ×2 (01:09→06:30)
[2018-10-01 05:15] LABS: Mycoplasma IgM Antibody 0.81 INDEX (<=0.90)
[2018-10-01 07:12] LABS: Glucose,Whole Blood 159 mg/dL (75-99)
[2018-10-01] MEDS: INSULIN ASPART (NovoLOG) 100 UNIT/ML VIAL SQ SCH ×4 (07:50→22:01)
[2018-10-01] MEDS: ENOXAPARIN 40 MG/0.4 ML SYRINGE SQ SCH (07:51)
[2018-10-01] MEDS: AZITHROMYCIN 500 MG TAB PO SCH (07:55)
[2018-10-01] MEDS: VALSARTAN 160 MG TAB PO SCH (07:56)
[2018-10-01] MEDS: FAMOTIDINE 20 MG TAB PO SCH (07:56)
[2018-10-01] MEDS: IPRATROPIUM-ALBUTEROL 3 ML NEB INHALATION SCH ×4 (08:02→21:10)
[2018-10-01] MEDS: BUDESONIDE 1 MG/2 ML NEBU INHALATION SCH ×2 (08:02→21:10)
[2018-10-01] MEDS: ALPRAZolam 0.25 MG TAB PO PRN (08:27)
[2018-10-01] MEDS: Calcium-Magnesium-Zinc Tablet PO SCH (08:55)
[2018-10-01] MEDS ORDERED: hydrALAZINE HCL 20 MG/ML 1 ML VIAL IVP PRN (10:11)
[2018-10-01 11:41] LABS: Glucose,Whole Blood 128 mg/dL (75-99)
[2018-10-01] MEDS: CYANOCOBALAMIN 500 MCG TAB PO SCH (12:19)
[2018-10-01] MEDS: MULTIVITAMINS, THERA 1 EACH TAB PO SCH (12:25)
--- NOTE | 2018-10-01 13:03 | P.PN ---
Subjective Progress Note Date: 10/01/18 This is an 87-year-old female patient of Dr. Vyas with past medical history of hypertension, hyperlipidemia, mild persistent asthma, generalized osteoarthritis. Patient gives history of onset Thursday at 5 PM of chills lasted for 1-2 hours. This went away but returned on Thursday and she had chills again. She also has had a cough since with some shortness of breath. At that time she was given prescription for azithromycin which did not help. Her cough is productive with green or yellow sputum usually in the mornings but today her sputum is clear. She called the doctor's office on Thursday/Thursday but the office was closed. She came into the [facility] emergency center for evaluation. She was afebrile, blood pressure 119/69, pulse ox 84%. White count was 19.8, BUN 27 creatinine 1.11, blood sugar 105. Influenza testing was negative. Lactic acid normal. Chest x-ray shows new diffuse interstitial lung disease. Could represent viral or atypical pneumonias. There is a hilar prominence persist. Patient was admitted to the [facility] floor and started on azithromycin and ceftriaxone as well as nebulizer treatments and Pulmicort, IV steroids. Repeat chest x-ray this morning showed redemonstrated acute interstitial lung disease which could represent interstitial pulmonary edema, interstitial pneumonitis or atypical pneumonia. Interstitial opacities appear stable to slightly worse. High-resolution CT of the chest revealed reticular densities and upper to mid lung predominant groundglass. Some differential considerations include an SIP, hypersensitivity pneumonitis and atypical pneumonias. 09/30: Patient is found sitting up in a chair at the bedside. She continues to have some wheezing and shortness of breath. Consult with Dr. Morris has been added for atypical pneumonia. Mycoplasma, Legionella immunoglobulin E, hypersensitivity panel ordered. Sputum culture is in progress. Urine cultures and finalize with no growth. Blood culture no growth at 48 hours. She continues to have cough with minimal sputum production. Blood pressure is elevated and we will increase valsartan to 160 mg in the morning. 10/01: Patient states that her breathing status is much improved this morning from yesterday. She remains on oxygen is planning to ambulate today to check pulse ox. Pulse ox is currently 96% on 2 L nasal cannula. She is complaining of dry mouth. She denies any sputum production today but states she is having saliva. Mycoplasma IgG was positive and IgM negative. Dr. Morris is following recommend continuing ceftriaxone and azithromycin. Legionella testing remains pending. IgG normal. Solu-Medrol will be decreased to 40 mg every 8 hours and start oral prednisone tomorrow. Plan to monitor patient overnight and discharged home tomorrow. Review of Systems All systems: negative Constitutional: Reports fatigue, Denies chills, Denies fever, Denies poor appetite Eyes: denies blurred vision, denies pain Ears, nose, mouth and throat: Denies dysphagia, Denies headache, Denies sore throat, Denies vertigo Cardiovascular: Denies chest pain, Denies dyspnea on exertion, Denies edema, Denies leg edema, Denies lightheadedness, Denies palpitations, Denies shortness of breath, Denies syncope Respiratory: Reports cough, Reports cough with sputum, Reports dyspnea, Reports respiratory infections, Denies excessive sputum, Denies hemoptysis, Denies home oxygen Gastrointestinal: Denies abdominal pain, Denies diarrhea, Denies nausea, Denies vomiting Genitourinary: Denies dysuria, Denies hematuria Musculoskeletal: Denies frequent falls, Denies gait dysfunction, Denies muscle weakness, Denies myalgias Integumentary: Denies pruritus, Denies rash, Denies wounds Neurological: Denies aphasia, Denies change in mentation, Denies confusion, Denies headaches, Denies numbness, Denies seizures, Denies weakness Psychiatric: Denies anxiety, Denies depression Endocrine: Denies fatigue, Denies weight change Objective - Vital Signs Vital signs: Vital Signs Temp 98.0 F 10/01/18 05:55 Pulse 74 10/01/18 08:14 Resp 10 L 10/01/18 08:03 BP 169/72 10/01/18 05:55 Pulse Ox 96 10/01/18 08:03 Intake & Output 09/30/18 10/01/18 10/01/18 18:59 06:59 18:59 Intake Total 1200 575 Balance 1200 575 Intake: Oral 1200 575 Other: Voiding Method Toilet Toilet # Voids 4 2 1 # Bowel Movements 0 - Exam Gen: This is an 87-year-old female. She is in chair and appears to be comfortable. HEENT: Head is atraumatic, normocephalic. Pupils equal, round. Sclerae is anicteric. NECK: Supple. No JVD. No lymphadenopathy. No thyromegaly. LUNGS: Rales right sided. No intercostal retractions. HEART: Regular rate and rhythm. No murmur. ABDOMEN: Soft. Bowel sounds are present. No masses. No tenderness. EXTREMITIES: No pedal edema. No calf tenderness. NEUROLOGICAL: Patient is awake, alert and oriented x3. Cranial nerves 2 through 12 are grossly intact. - Labs CBC & Chem 7: 09/30/18 08:13 09/30/18 08:13 Labs: Abnormal Lab Results - Last 24 Hours (Table) 09/30/18 09/30/18 09/30/18 Range/Units 08:13 08:13 08:13 WBC 21.2 H (3.8-10.6) k/uL RBC 3.54 L (3.80-5.40) m/uL MCV 100.7 H (80.0-100.0) fL BUN 27 H (7-17) mg/dL Glucose 219 H (74-99) mg/dL POC Glucose (mg/dL) (75-99) mg/dL Mycoplasma pneumon IgG 1.24 H (<=0.90) INDEX 09/30/18 09/30/18 09/30/18 Range/Units 11:46 17:05 20:48 WBC (3.8-10.6) k/uL RBC (3.80-5.40) m/uL MCV (80.0-100.0) fL BUN (7-17) mg/dL Glucose (74-99) mg/dL POC Glucose (mg/dL) 121 H 176 H 236 H (75-99) mg/dL Mycoplasma pneumon IgG (<=0.90) INDEX 10/01/18 Range/Units 07:10 WBC (3.8-10.6) k/uL RBC (3.80-5.40) m/uL MCV (80.0-100.0) fL BUN (7-17) mg/dL Glucose (74-99) mg/dL POC Glucose (mg/dL) 159 H (75-99) mg/dL Mycoplasma pneumon IgG (<=0.90) INDEX Microbiology - Last 24 Hours (Table) 09/28/18 11:55 Blood Culture - Preliminary Blood No Growth after 48 hours Assessment and Plan Plan: 1. Acute hypoxic respiratory failure with pulse ox of 84% on room air secondary to hypersensitivity pneumonitis, atypical pneumonia and exacerbation of mild persistent asthma. Chest x-ray and CT as above. Continue DuoNeb treatments 4 times daily and every 4 hours as needed, azithromycin, Pulmicort 1 mg twice daily, ceftriaxone, Flonase, Solu-Medrol decreased to 40 mg IV every 8 hours, Singulair 10 mg at bedtime. Consult with Dr. Morris appreciated. Hypersensitivity panel and Legionella pending. 2. Mild persistent asthma exacerbated by aerosol sprays. Continue as in #1. 3. Hypertension. Continue valsartan 80 mg at bedtime. IV hydralazine added for blood pressure greater than 160. 4. Hyperlipidemia. Continue Lipitor 10 mg at bedtime. 5. Generalized osteoarthritis, stable. 6. History of TIA. Continue aspirin, Lipitor. 7. DVT prophylaxis. Lovenox. 8. GI prophylaxis. Pepcid. Discharge plan: home on Thursday Impression and plan of care have been directed as dictated by the signing physician. Teetee Keating nurse practitioner acting as scribe for signing physician.
[2018-10-01] MEDS ORDERED: methylPREDNISolone SOD SUCCI 40 MG/ML 1 ML VIAL IV SCH (16:00)
[2018-10-01 17:21] LABS: Glucose,Whole Blood 150 mg/dL (75-99)
--- NOTE | 2018-10-01 19:32 | P.PN ---
Subjective Progress Note Date: 10/01/18 This is an 87-year-old female patient with past medical history of hypertension, hyperlipidemia, mild persistent asthma, generalized osteoarthritis. Patient gives history of onset Thursday at 5 PM of chills lasted for 1-2 hours. This went away but returned on Thursday and she had chills again. She also has had a cough since with some shortness of breath. At that time she was given prescription for azithromycin which did not help. Her cough is productive with green or yellow sputum usually in the mornings but today her sputum is clear. She called her doctor's office on Thursday/Thursday but the office was closed. She came into [facility] emergency center for evaluation. She was afebrile, blood pressure 119/69, pulse ox 84%. White count was 19.8, BUN 27 creatinine 1.11, blood sugar 105. Influenza testing was negative. Lactic acid normal. Chest x-ray shows new diffuse interstitial lung disease. Could represent viral or atypical pneumonias. There is a hilar prominence persist. Patient was admitted to the [facility] floor and started on azithromycin and ceftriaxone as well as nebulizer treatments and Pulmicort, IV steroids. Repeat chest x-ray showed redemonstrated acute interstitial lung disease which could represent interstitial pulmonary edema, interstitial pneumonitis or atypical pneumonia. Interstitial opacities appear stable to slightly worse. High-resolution CT of the chest revealed reticular densities and upper to mid lung predominant groundglass. Some differential considerations include an SIP, hypersensitivity pneumonitis and atypical pneumonias. Concern is for atypical pneumonia and thus this consult was requested. 10/01/2018 patient is feeling somewhat better. Still requiring some oxygen with activity. She does feel better is somewhat anxious to go home and that the hospital environment and somewhat disruptive for she's having some difficulty sleeping. She relates that she's feeling better not having fevers or chills. Objective - Vital Signs Vital signs: Vital Signs Temp 97.6 F 10/01/18 14:36 Pulse 74 10/01/18 17:15 Resp 16 10/01/18 14:36 BP 146/66 10/01/18 14:36 Pulse Ox 95 10/01/18 14:36 Intake & Output 10/01/18 10/01/18 10/02/18 06:59 18:59 06:59 Intake Total 575 750 Balance 575 750 Intake: Oral 575 750 Other: Voiding Method Toilet Toilet # Voids 2 2 # Bowel Movements 0 0 - Exam Gen: This is an 87-year-old female. She is sitting up appears to be comfortable. No respiratory distress is noted. HEENT: Head is atraumatic, normocephalic. Pupils equal, round. Sclerae is anicteric. NECK: Supple. No JVD. No lymphadenopathy. No thyromegaly. LUNGS: Rales right sided, expiratory wheeze. No intercostal retractions. HEART: Regular rate and rhythm. No murmur. ABDOMEN: Soft. Bowel sounds are present. No masses. No tenderness. EXTREMITIES: No pedal edema. No calf tenderness. NEUROLOGICAL: Patient is awake, alert and oriented x3 - Labs CBC & Chem 7: 09/30/18 08:13 09/30/18 08:13 Labs: Abnormal Lab Results - Last 24 Hours (Table) 09/30/18 09/30/18 10/01/18 Range/Units 08:13 20:48 07:10 POC Glucose (mg/dL) 236 H 159 H (75-99) mg/dL Mycoplasma pneumon IgG 1.24 H (<=0.90) INDEX 10/01/18 10/01/18 Range/Units 11:33 17:11 POC Glucose (mg/dL) 128 H 150 H (75-99) mg/dL Mycoplasma pneumon IgG (<=0.90) INDEX Microbiology - Last 24 Hours (Table) 09/30/18 11:40 Gram Stain - Preliminary Sputum 09/28/18 11:55 Blood Culture - Preliminary Blood No Growth after 72 hours Laboratory Results WBC 21.2 k/uL (3.8-10.6) H 09/30/18 08:13 RBC 3.54 m/uL (3.80-5.40) L 09/30/18 08:13 Hgb 11.4 gm/dL (11.4-16.0) 09/30/18 08:13 Hct 35.6 % (34.0-46.0) 09/30/18 08:13 MCV 100.7 fL (80.0-100.0) H 09/30/18 08:13 MCH 32.3 pg (25.0-35.0) 09/30/18 08:13 MCHC 32.0 g/dL (31.0-37.0) 09/30/18 08:13 RDW 13.0 % (11.5-15.5) 09/30/18 08:13 Plt Count 292 k/uL (150-450) 09/30/18 08:13 Neutrophils % 90 % 09/28/18 11:55 Lymphocytes % 6 % 09/28/18 11:55 Monocytes % 3 % 09/28/18 11:55 Eosinophils % 0 % 09/28/18 11:55 Basophils % 0 % 09/28/18 11:55 Neutrophils # 17.8 k/uL (1.3-7.7) H 09/28/18 11:55 Lymphocytes # 1.1 k/uL (1.0-4.8) 09/28/18 11:55 Monocytes # 0.6 k/uL (0-1.0) 09/28/18 11:55 Eosinophils # 0.0 k/uL (0-0.7) 09/28/18 11:55 Basophils # 0.0 k/uL (0-0.2) 09/28/18 11:55 PT 9.8 sec (9.0-12.0) 09/28/18 11:55 INR 0.9 (<1.2) 09/28/18 11:55 APTT 19.1 sec (22.0-30.0) L 09/28/18 11:55 Sodium 137 mmol/L (137-145) 09/30/18 08:13 Potassium 4.7 mmol/L (3.5-5.1) 09/30/18 08:13 Chloride 106 mmol/L (98-107) 09/30/18 08:13 Carbon Dioxide 22 mmol/L (22-30) 09/30/18 08:13 Anion Gap 9 mmol/L 09/30/18 08:13 BUN 27 mg/dL (7-17) H 09/30/18 08:13 Creatinine 0.82 mg/dL (0.52-1.04) 09/30/18 08:13 Est GFR (CKD-EPI)AfAm 75 (>60 ml/min/1.73 sqM) 09/30/18 08:13 Est GFR (CKD-EPI)NonAf 65 (>60 ml/min/1.73 sqM) 09/30/18 08:13 Glucose 219 mg/dL (74-99) H 09/30/18 08:13 POC Glucose (mg/dL) 150 mg/dL (75-99) H 10/01/18 17:11 POC Glu Flow Coordinator ID Araceli Nix 10/01/18 17:[address] Glu mg/dL 131 09/28/18 11:55 Hemoglobin A1c 6.2 % (4.0-6.0) H 09/28/18 11:55 Plasma Lactic Acid Sammy 1.6 mmol/L (0.7-2.0) 09/28/18 11:57 Calcium 10.1 mg/dL (8.4-10.2) 09/30/18 08:13 Total Bilirubin 0.7 mg/dL (0.2-1.3) 09/28/18 11:55 AST 29 U/L (14-36) 09/28/18 11:55 ALT 29 U/L (9-52) 09/28/18 11:55 Alkaline Phosphatase 80 U/L (38-126) 09/28/18 11:55 Total Protein 6.8 g/dL (6.3-8.2) 09/28/18 11:55 Albumin 3.9 g/dL (3.5-5.0) 09/28/18 11:55 Urine Color Yellow 09/28/18 14:20 Urine Appearance Cloudy (Clear) H 09/28/18 14:20 Urine pH 5.0 (5.0-8.0) 09/28/18 14:20 Ur Specific [place] 1.021 (1.001-1.035) 09/28/18 14:20 Urine Protein 1+ (Negative) H 09/28/18 14:20 Urine Glucose (UA) Negative (Negative) 09/28/18 14:20 Urine Ketones 1+ (Negative) H 09/28/18 14:20 Urine Blood Trace (Negative) H 09/28/18 14:20 Urine Nitrite Negative (Negative) 09/28/18 14:20 Urine Bilirubin Negative (Negative) 09/28/18 14:20 Urine Urobilinogen <2.0 mg/dL (<2.0) 09/28/18 14:20 Ur Leukocyte Esterase Trace (Negative) H 09/28/18 14:20 Urine RBC 5 /hpf (0-5) 09/28/18 14:20 Urine WBC 4 /hpf (0-5) 09/28/18 14:20 Ur Squamous Epith Cells 1 /hpf (0-4) 09/28/18 14:20 Amorphous Sediment Rare /hpf (None) H 09/28/18 14:20 Urine Bacteria Rare /hpf (None) H 09/28/18 14:20 Hyaline Casts 21 /lpf (0-2) H 09/28/18 14:20 Urine Mucus Few /hpf (None) H 09/28/18 14:20 IgE <1.00 IU/mL (0.00-114.00) 09/30/18 08:13 Influenza Type A RNA Not Detected (Not Detectd) 09/28/18 11:55 Influenza Type B (PCR) Not Detected (Not Detectd) 09/28/18 11:55 Urine Legionella Ag Not detected (Not detected) 09/30/18 11:30 Mycoplasma pneumon IgG 1.24 INDEX (<=0.90) H 09/30/18 08:13 Mycoplasma pneumon IgM 0.81 INDEX (<=0.90) 09/30/18 08:13 Microbiology 09/30/18 11:40 Sputum Gram Stain - Preliminary 09/28/18 11:55 Blood Blood Culture - Preliminary No Growth after 72 hours 09/28/18 14:22 Urine,Voided Urine Culture - Final 09/28/18 17:15 Sputum Gram Stain - Final 09/28/18 17:15 Sputum Sputum Culture - Final Assessment and Plan (1) Interstitial pneumonia Narrative/Plan: This pleasant 87-year-old woman is history of prior pneumonia with no ongoing significant underlying lung disease. As noted her chest x-ray as well as a computed tomography scan showed evidence of an interstitial pneumonia. Given the sudden onset and symptoms consistent with a viral infection she likely has a viral pneumonia, but not influenza given her negative testing. Sputum assessment for evaluation including a viral panel might be of some utility if can be obtained. She is being treated for atypical pathogens with Rocephin and azithromycin which would include Legionella as well as mycoplasma. Further evaluation for these pathogens has been requested. Continue ongoing supportive care which includes oxygen therapy at this time. Hopefully with the supportive care steroid therapy and respiratory treatments she will resolve the oxygen gradient abnormality rapidly. If she has failure of improvement bronchoscopy with lavage may be required for further intervention. 10/01/2018 patient is starting to feel better. Legionella and Mycoplasma titers come back negative for acute infection. Patient is having steady improvement with current interventions. It is still most likely that she has a viral infection is responding to current supportive measures. If her oxygen status improved she will likely be discharged home tomorrow. Would complete her steroid taper and completion of the course of his azithromycin over 5 days. Current Visit: Yes Status: Acute Code(s): J84.9 - INTERSTITIAL PULMONARY DISEASE, UNSPECIFIED SNOMED Code(s): 24718012 (2) Bronchospasm, acute Current Visit: No Status: Acute Code(s): J98.01 - ACUTE BRONCHOSPASM SNOMED Code(s): 25590208762759
[2018-10-01] MEDS: ASPIRIN 81 MG PO SCH (20:26)
[2018-10-01] MEDS: FLUTICASONE 50MCG/SPRAY NASAL 16GM EA NOSTRIL SCH (20:26)
[2018-10-01] MEDS: ATORVASTATIN 10 MG TAB PO SCH (20:26)
[2018-10-01] MEDS: MELATONIN 3 MG TABLET PO SCH (20:27)
[2018-10-01] MEDS: MONTELUKAST 10 MG TAB PO SCH (20:27)
[2018-10-01 20:32] LABS: Glucose,Whole Blood 189 mg/dL (75-99)
[2018-10-01] MEDS: guaiFENesin-DM 100-10MG/5ML 10 ML CUP PO PRN (22:00)
[2018-10-02 07:07] LABS: Glucose,Whole Blood 110 mg/dL (75-99)
[2018-10-02] MEDS: Calcium-Magnesium-Zinc Tablet PO SCH (08:01)
[2018-10-02] MEDS: INSULIN ASPART (NovoLOG) 100 UNIT/ML VIAL SQ SCH ×4 (08:01→22:20)
[2018-10-02] MEDS: MULTIVITAMINS, THERA 1 EACH TAB PO SCH (08:11)
[2018-10-02] MEDS: ENOXAPARIN 40 MG/0.4 ML SYRINGE SQ SCH (08:11)
[2018-10-02] MEDS: FAMOTIDINE 20 MG TAB PO SCH (08:11)
[2018-10-02] MEDS: AZITHROMYCIN 500 MG TAB PO SCH (08:11)
[2018-10-02] MEDS: predniSONE 20 MG TAB PO SCH (08:11)
[2018-10-02] MEDS: VALSARTAN 160 MG TAB PO SCH (08:12)
[2018-10-02] MEDS: IPRATROPIUM-ALBUTEROL 3 ML NEB INHALATION SCH ×4 (09:57→19:24)
[2018-10-02 11:44] LABS: HCT 37.6 % (34.0-46.0); HGB 12.1 gm/dL (11.4-16.0); MCHC 32.2 g/dL (31.0-37.0); MCV 99.3 fL (80.0-100.0); Mean Platelet Volume 6.5; Platelet Count 314 k/uL (150-450); RBC 3.79 m/uL (3.80-5.40); RDW 12.7 % (11.5-15.5); WBC 18.8 k/uL (3.8-10.6)
[2018-10-02 11:54] LABS: Albumin 3.3 g/dL (3.5-5.0); Calcium 9.7 mg/dL (8.4-10.2); Potassium 4.5 mmol/L (3.5-5.1); Total Bilirubin 0.5 mg/dL (0.2-1.3); Total Protein 6.1 g/dL (6.3-8.2)
[2018-10-02 12:24] LABS: Glucose,Whole Blood 115 mg/dL (75-99)
--- NOTE | 2018-10-02 14:27 | P.PN ---
Subjective Progress Note Date: 10/02/18 Principal diagnosis: Pneumonia Patient continued to the hypoxic when walking in the hallway where her oxygen drops to 80% on 2 L nasal cannula while patient is satting above 90% on 2 L nasal cannula on breast. Patient is still using accessory muscles and shortness of breath with minimal composition Objective - Vital Signs Vital signs: Vital Signs Temp 97.8 F 10/02/18 06:09 Pulse 72 10/02/18 13:05 Resp 17 10/02/18 06:09 BP 160/73 10/02/18 06:09 Pulse Ox 98 10/02/18 09:58 Intake & Output 10/01/18 10/02/18 10/02/18 18:59 06:59 18:59 Intake Total 750 250 Balance 750 250 Intake: Oral 750 250 Other: Voiding Method Toilet Toilet # Voids 2 1 1 # Bowel Movements 0 - Exam Lungs coarse breathing sounds bilaterally Heart normal S1-S2 Abdomen soft abdomen S BuSpar sounds upper quadrant Skin no new rash Psych alert and oriented 3 Lower extremity no edema - Labs CBC & Chem 7: 10/02/18 11:17 10/02/18 11:17 Labs: Abnormal Lab Results - Last 24 Hours (Table) 10/01/18 10/01/18 10/01/18 Range/Units 10:15 17:11 20:30 WBC (3.8-10.6) k/uL RBC (3.80-5.40) m/uL Sodium (137-145) mmol/L BUN (7-17) mg/dL Glucose (74-99) mg/dL POC Glucose (mg/dL) 150 H 189 H (75-99) mg/dL Total Protein (6.3-8.2) g/dL Albumin (3.5-5.0) g/dL Procalcitonin 0.30 H (0.02-0.09) ng/mL 10/02/18 10/02/18 10/02/18 Range/Units 07:05 11:17 11:17 WBC 18.8 H (3.8-10.6) k/uL RBC 3.79 L (3.80-5.40) m/uL Sodium 136 L (137-145) mmol/L BUN 28 H (7-17) mg/dL Glucose 100 H (74-99) mg/dL POC Glucose (mg/dL) 110 H (75-99) mg/dL Total Protein 6.1 L (6.3-8.2) g/dL Albumin 3.3 L (3.5-5.0) g/dL Procalcitonin (0.02-0.09) ng/mL 10/02/18 Range/Units 12:20 WBC (3.8-10.6) k/uL RBC (3.80-5.40) m/uL Sodium (137-145) mmol/L BUN (7-17) mg/dL Glucose (74-99) mg/dL POC Glucose (mg/dL) 115 H (75-99) mg/dL Total Protein (6.3-8.2) g/dL Albumin (3.5-5.0) g/dL Procalcitonin (0.02-0.09) ng/mL Microbiology - Last 24 Hours (Table) 09/28/18 11:55 Blood Culture - Preliminary Blood No Growth after 96 hours 09/30/18 11:40 Gram Stain - Final Sputum Sputum Culture - Final Assessment and Plan Assessment: 1. Acute hypoxic respiratory failure. 2. Pneumonia. 3. Hypertension. 4. Hyperlipidemia. 5. Generalized debility and weakness. 6. History of TIAs. Plan discussed with patient and nursing staff when we would like to continue with IV antibiotics per infectious disease recommendation continue pulmonary hygiene and aggressive use for incentive spirometer and oxygen to maintain her oxygenation above 90% at all the time patient will be evaluated by physical therapy and we will consider discharging based on clinical progress family requested patient stay in the hospital until her symptoms as improved
[2018-10-02 17:06] LABS: Glucose,Whole Blood 143 mg/dL (75-99)
[2018-10-02] MEDS: BUDESONIDE 1 MG/2 ML NEBU INHALATION SCH (19:24)
[2018-10-02 20:33] LABS: Glucose,Whole Blood 142 mg/dL (75-99)
[2018-10-02] MEDS: MELATONIN 3 MG TABLET PO SCH (22:19)
[2018-10-02] MEDS: ASPIRIN 81 MG PO SCH (22:19)
[2018-10-02] MEDS: ATORVASTATIN 10 MG TAB PO SCH (22:20)
[2018-10-02] MEDS: FLUTICASONE 50MCG/SPRAY NASAL 16GM EA NOSTRIL SCH (22:20)
[2018-10-02] MEDS: MONTELUKAST 10 MG TAB PO SCH (22:20)
[2018-10-03] MEDS: ALPRAZolam 0.25 MG TAB PO PRN ×2 (03:06→21:35)
[2018-10-03] MEDS: IPRATROPIUM-ALBUTEROL 3 ML NEB INHALATION SCH ×4 (07:07→20:38)
[2018-10-03] MEDS: BUDESONIDE 1 MG/2 ML NEBU INHALATION SCH ×2 (07:07→20:38)
[2018-10-03 07:10] LABS: Glucose,Whole Blood 81 mg/dL (75-99)
[2018-10-03] MEDS: INSULIN ASPART (NovoLOG) 100 UNIT/ML VIAL SQ SCH ×4 (07:25→21:14)
[2018-10-03] MEDS: Calcium-Magnesium-Zinc Tablet PO SCH (07:25)
[2018-10-03] MEDS ORDERED: ACETAMINOPHEN TAB 325 MG TAB PO PRN (09:37)
[2018-10-03] MEDS: predniSONE 20 MG TAB PO SCH (10:02)
[2018-10-03] MEDS: AZITHROMYCIN 500 MG TAB PO SCH (10:02)
[2018-10-03] MEDS: MULTIVITAMINS, THERA 1 EACH TAB PO SCH (10:02)
[2018-10-03] MEDS: FAMOTIDINE 20 MG TAB PO SCH (10:02)
[2018-10-03] MEDS: ENOXAPARIN 40 MG/0.4 ML SYRINGE SQ SCH (10:03)
[2018-10-03] MEDS: VALSARTAN 160 MG TAB PO SCH (10:03)
[2018-10-03 11:39] LABS: Glucose,Whole Blood 102 mg/dL (75-99)
[2018-10-03] MEDS ORDERED: guaiFENesin 600 MG TABLET.ER PO PRN (12:45)
--- NOTE | 2018-10-03 13:42 | P.PN ---
Subjective Progress Note Date: 10/03/18 Principal diagnosis: Pneumonia Patient continued to the hypoxic when walking in the hallway where her oxygen drops to 80% on 2 L nasal cannula while patient is satting above 90% on 2 L nasal cannula on breast. Patient is still using accessory muscles and shortness of breath with minimal conversation. 2 daughters at the bedside have multiple concerns and questions all addressed Objective - Vital Signs Vital signs: Vital Signs Temp 98.2 F 10/03/18 06:04 Pulse 82 10/03/18 11:53 Resp 17 10/03/18 06:04 BP 134/69 10/03/18 06:04 Pulse Ox 87 L 10/03/18 11:37 Intake & Output 10/02/18 10/03/18 10/03/18 18:59 06:59 18:59 Intake Total 500 250 Balance 500 250 Intake: Oral 500 250 Other: Voiding Method Toilet Toilet # Voids 4 1 1 # Bowel Movements 1 1 - Exam Lungs coarse breathing sounds bilaterally Heart normal S1-S2 Abdomen soft abdomen S BuSpar sounds upper quadrant Skin no new rash Psych alert and oriented 3 Lower extremity no edema - Labs CBC & Chem 7: 10/02/18 11:17 10/02/18 11:17 Labs: Abnormal Lab Results - Last 24 Hours (Table) 10/02/18 10/02/18 10/03/18 Range/Units 16:57 20:32 11:33 POC Glucose (mg/dL) 143 H 142 H 102 H (75-99) mg/dL Microbiology - Last 24 Hours (Table) 09/28/18 11:55 Blood Culture - Preliminary Blood No Growth after 96 hours 09/30/18 11:40 Gram Stain - Final Sputum Sputum Culture - Final Assessment and Plan Assessment: 1. Acute hypoxic respiratory failure. 2. Pneumonia. 3. Hypertension. 4. Hyperlipidemia. 5. Generalized debility and weakness. 6. History of TIAs. Given the patient's ongoing hypoxia I discussed with pulmonary to continue with current steroid dose continue with aggressive pulmonary hygiene and complete course of antibiotics during the hospital stay encourage ambulation and have physical and acute patient will therapy evaluated the patient encourage incentive spirometer and flutter valve and consider discharge tomorrow to home once oxygen is delivered or appropriate documentation were signed and provided to the case management in preparation for discharge in the morning
[2018-10-03 16:44] LABS: Glucose,Whole Blood 147 mg/dL (75-99)
[2018-10-03 20:08] LABS: Glucose,Whole Blood 170 mg/dL (75-99)
[2018-10-03] MEDS: MONTELUKAST 10 MG TAB PO SCH (21:13)
[2018-10-03] MEDS: MELATONIN 3 MG TABLET PO SCH (21:13)
[2018-10-03] MEDS: ATORVASTATIN 10 MG TAB PO SCH (21:13)
[2018-10-03] MEDS: ASPIRIN 81 MG PO SCH (21:14)
[2018-10-03] MEDS: FLUTICASONE 50MCG/SPRAY NASAL 16GM EA NOSTRIL SCH (21:35)
[2018-10-04] MEDS: BUDESONIDE 1 MG/2 ML NEBU INHALATION SCH (07:13)
[2018-10-04] MEDS: IPRATROPIUM-ALBUTEROL 3 ML NEB INHALATION SCH ×3 (07:14→15:13)
[2018-10-04] MEDS: INSULIN ASPART (NovoLOG) 100 UNIT/ML VIAL SQ SCH ×2 (07:48→14:30)
[2018-10-04 07:53] LABS: Glucose,Whole Blood 86 mg/dL (75-99)
[2018-10-04 07:57] VITALS: BP 130/73; RESP 18; TEMP 98.1
[2018-10-04] MEDS: VALSARTAN 160 MG TAB PO SCH (08:27)
[2018-10-04] MEDS: FAMOTIDINE 20 MG TAB PO SCH (08:28)
[2018-10-04] MEDS: AZITHROMYCIN 500 MG TAB PO SCH (08:28)
[2018-10-04] MEDS: ENOXAPARIN 40 MG/0.4 ML SYRINGE SQ SCH (08:28)
[2018-10-04] MEDS: Calcium-Magnesium-Zinc Tablet PO SCH (08:28)
[2018-10-04] MEDS: predniSONE 20 MG TAB PO SCH (08:28)
[2018-10-04 09:03] LABS: HCT 35.1 % (34.0-46.0); HGB 11.7 gm/dL (11.4-16.0); MCH 32.9 pg (25.0-35.0); MCHC 33.3 g/dL (31.0-37.0); Mean Platelet Volume 6.9; Platelet Count 275 k/uL (150-450); RBC 3.54 m/uL (3.80-5.40); RDW 12.8 % (11.5-15.5); WBC 10.3 k/uL (3.8-10.6)
[2018-10-04 12:13] LABS: Glucose,Whole Blood 121 mg/dL (75-99)
--- NOTE | 2018-10-04 12:31 | P.CNPUL ---
History of Present Illness Consult date: 10/04/18 Reason for consult: dyspnea, cough, abnormal CXR/CT Chief complaint: Shortness of breath History of present illness: This is an 87-year-old female who presented to the emergency department Thursday afternoon complaining of shortness of breath and feeling weak. The patient states she did have fevers and chills at home. She states 3 years ago she was hospitalized with pneumonia. She has no history of asthma or COPD. She does not use any inhalers or nebulizers at home. She does not have any pets in her home but she does state that she Sits on occasion. She states she does have seasonal and environmental allergies. She uses a vaporizer an air purifier at home. She is a lifelong never smoker. 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 She does complain of cough which she states was much worse a few days ago. She states it is slowly improving. She says her cough is productive of very little phlegm. Review of Systems All systems: negative Past Medical History Past Medical History: CVA/TIA, GERD/Reflux, Hyperlipidemia, Hypertension, Osteoarthritis (OA), Pneumonia Additional Past Medical History / Comment(s): TIA, bilateral pneumonia, UTI with sepsis, arthritis bilateral shoulders/hips, vitamin D Deficiency History of Any Multi-Drug Resistant Organisms: None Reported Past Surgical History: Joint Replacement, Orthopedic Surgery Additional Past Surgical History / Comment(s): NITO CATARACTS/LENS IMPLANTS, NITO KNEE REPLACMENTS, D&C, TOTAL HYSTERECTOMY Past Anesthesia/Blood Transfusion Reactions: No Reported Reaction Smoking Status: Never smoker Additional Past Alcohol Use History / Comment(s): Patient is a lifelong nonsmoker, no marijuana or illicit drug use. No alcohol use. Patient currently lives alone. Her daughter is near if needed. Patient volunteers at [facility]. She does not have oxygen or nebulizer. - Past Family History Father Family Medical History: CVA/TIA Mother Family Medical History: CVA/TIA Son(s) Family Medical History: Diabetes Mellitus Sister(s) Family Medical History: Cancer, Diabetes Mellitus Medications and Allergies Home Medications Medication Instructions Recorded Confirmed Type Aspirin EC [Ecotrin Low Dose] 162 mg PO HS 10/05/15 09/28/18 History Atorvastatin [Lipitor] 10 mg PO HS 10/05/15 09/28/18 History Calcium/Magnesium/Zinc 1 tab PO DAILY 10/05/15 09/28/18 History [Rijwdpi-Kuzszxgse-Bjgj Tablet] Multivit-Min/FA/Lycopen/Lutein 1 tab PO DAILY 10/05/15 09/28/18 History [Centrum Silver Tablet] ALPRAZolam [Xanax] 0.25 mg PO BID PRN 11/18/15 09/28/18 History Carboxymethylcellulose Sodium 1 drop BOTH EYES QID PRN 09/28/18 09/28/18 History [Refresh Tears] Cyanocobalamin (Vitamin B-12) 1,000 mcg PO MOWEFR 09/28/18 09/28/18 History [Vitamin B-12] Fluticasone Nasal [place] [Flonase 1 spray EA NOSTRIL HS 09/28/18 09/28/18 History Nasal [place]] Glucosamine-Chondr 500-400Mg 1 tab PO DAILY 09/28/18 09/28/18 History Montelukast Sodium [Singulair] 10 mg PO HS 09/28/18 09/28/18 History Valsartan 80 mg PO HS 09/28/18 09/28/18 History Allergies Allergy/AdvReac Type Severity Reaction Status Date / Time No Known Allergies Allergy Verified 09/28/18 12:36 Physical Exam Osteopathic Statement: *. No significant issues noted on an osteopathic structural exam other than those noted in the History and Physical/Consult. Vitals: Vital Signs Temp Pulse Pulse Pulse Resp BP Pulse Ox 10/04/18 11:18 64 10/04/18 11:06 60 10/04/18 08:00 18 10/04/18 07:27 64 10/04/18 07:16 98.1 F 62 18 130/73 95 10/04/18 07:14 64 10/03/18 22:39 98.2 F 61 16 116/65 94 L 10/03/18 20:52 68 16 10/03/18 20:38 64 16 10/03/18 16:35 80 16 10/03/18 16:26 88 16 98 10/03/18 15:31 72 61 16 10/03/18 14:17 98.4 F 72 16 130/66 93 L Intake and Output 10/03/18 10/04/18 10/04/18 22:59 06:59 14:59 Intake Total 250 240 Balance 250 240 Intake: Oral 250 240 Other: Voiding Method Toilet Toilet # Voids 1 1 # Bowel Movements 0 Weight 69.853 kg General: Patient is alert and oriented 3, no acute distress cardiovascular: Regular rate and rhythm, S1/S2 Lungs: Scattered bilateral crackles Abdomen: Soft nontender nondistended positive bowel sounds Extremities + edema Results - Laboratory Findings CBC and BMP: 10/04/18 07:53 10/02/18 11:17 PT/INR, D-dimer PT 9.8 sec (9.0-12.0) 09/28/18 11:55 INR 0.9 (<1.2) 09/28/18 11:55 Abnormal lab findings: Abnormal Labs 09/28/18 09/28/18 09/28/18 11:55 11:55 11:55 WBC 19.8 H RBC MCV Neutrophils # 17.8 H APTT 19.1 L Sodium Chloride 108 H Carbon Dioxide 20 L BUN 27 H Creatinine 1.11 H Glucose 105 H POC Glucose (mg/dL) Hemoglobin A1c Calcium 10.4 H Total Protein Albumin Procalcitonin Urine Appearance Urine Protein Urine Ketones Urine Blood Ur Leukocyte Esterase Amorphous Sediment Urine Bacteria Hyaline Casts Urine Mucus Mycoplasma pneumon IgG 09/28/18 09/28/18 09/28/18 11:55 14:20 17:08 WBC RBC MCV Neutrophils # APTT Sodium Chloride Carbon Dioxide BUN Creatinine Glucose POC Glucose (mg/dL) 129 H Hemoglobin A1c 6.2 H Calcium Total Protein Albumin Procalcitonin Urine Appearance Cloudy H Urine Protein 1+ H Urine Ketones 1+ H Urine Blood Trace H Ur Leukocyte Esterase Trace H Amorphous Sediment Rare H Urine Bacteria Rare H Hyaline Casts 21 H Urine Mucus Few H Mycoplasma pneumon IgG 09/28/18 09/29/18 09/29/18 20:51 06:58 12:21 WBC RBC MCV Neutrophils # APTT Sodium Chloride Carbon Dioxide BUN Creatinine Glucose POC Glucose (mg/dL) 190 H 156 H 192 H Hemoglobin A1c Calcium Total Protein Albumin Procalcitonin Urine Appearance Urine Protein Urine Ketones Urine Blood Ur Leukocyte Esterase Amorphous Sediment Urine Bacteria Hyaline Casts Urine Mucus Mycoplasma pneumon IgG 09/29/18 09/29/18 09/30/18 17:11 21:00 07:03 WBC RBC MCV Neutrophils # APTT Sodium Chloride Carbon Dioxide BUN Creatinine Glucose POC Glucose (mg/dL) 194 H 280 H 153 H Hemoglobin A1c Calcium Total Protein Albumin Procalcitonin Urine Appearance Urine Protein Urine Ketones Urine Blood Ur Leukocyte Esterase Amorphous Sediment Urine Bacteria Hyaline Casts Urine Mucus Mycoplasma pneumon IgG 09/30/18 09/30/18 09/30/18 08:13 08:13 08:13 WBC 21.2 H RBC 3.54 L MCV 100.7 H Neutrophils # APTT Sodium Chloride Carbon Dioxide BUN 27 H Creatinine Glucose 219 H POC Glucose (mg/dL) Hemoglobin A1c Calcium Total Protein Albumin Procalcitonin Urine Appearance Urine Protein Urine Ketones Urine Blood Ur Leukocyte Esterase Amorphous Sediment Urine Bacteria Hyaline Casts Urine Mucus Mycoplasma pneumon IgG 1.24 H 09/30/18 09/30/18 09/30/18 11:46 17:05 20:48 WBC RBC MCV Neutrophils # APTT Sodium Chloride Carbon Dioxide BUN Creatinine Glucose POC Glucose (mg/dL) 121 H 176 H 236 H Hemoglobin A1c Calcium Total Protein Albumin Procalcitonin Urine Appearance Urine Protein Urine Ketones Urine Blood Ur Leukocyte Esterase Amorphous Sediment Urine Bacteria Hyaline Casts Urine Mucus Mycoplasma pneumon IgG 10/01/18 10/01/18 10/01/18 07:10 10:15 11:33 WBC RBC MCV Neutrophils # APTT Sodium Chloride Carbon Dioxide BUN Creatinine Glucose POC Glucose (mg/dL) 159 H 128 H Hemoglobin A1c Calcium Total Protein Albumin Procalcitonin 0.30 H Urine Appearance Urine Protein Urine Ketones Urine Blood Ur Leukocyte Esterase Amorphous Sediment Urine Bacteria Hyaline Casts Urine Mucus Mycoplasma pneumon IgG 10/01/18 10/01/18 10/02/18 17:11 20:30 07:05 WBC RBC MCV Neutrophils # APTT Sodium Chloride Carbon Dioxide BUN Creatinine Glucose POC Glucose (mg/dL) 150 H 189 H 110 H Hemoglobin A1c Calcium Total Protein Albumin Procalcitonin Urine Appearance Urine Protein Urine Ketones Urine Blood Ur Leukocyte Esterase Amorphous Sediment Urine Bacteria Hyaline Casts Urine Mucus Mycoplasma pneumon IgG 10/02/18 10/02/18 10/02/18 11:17 11:17 12:20 WBC 18.8 H RBC 3.79 L MCV Neutrophils # APTT Sodium 136 L Chloride Carbon Dioxide BUN 28 H Creatinine Glucose 100 H POC Glucose (mg/dL) 115 H Hemoglobin A1c Calcium Total Protein 6.1 L Albumin 3.3 L Procalcitonin Urine Appearance Urine Protein Urine Ketones Urine Blood Ur Leukocyte Esterase Amorphous Sediment Urine Bacteria Hyaline Casts Urine Mucus Mycoplasma pneumon IgG 10/02/18 10/02/18 10/03/18 16:57 20:32 11:33 WBC RBC MCV Neutrophils # APTT Sodium Chloride Carbon Dioxide BUN Creatinine Glucose POC Glucose (mg/dL) 143 H 142 H 102 H Hemoglobin A1c Calcium Total Protein Albumin Procalcitonin Urine Appearance Urine Protein Urine Ketones Urine Blood Ur Leukocyte Esterase Amorphous Sediment Urine Bacteria Hyaline Casts Urine Mucus Mycoplasma pneumon IgG 10/03/18 10/03/18 10/04/18 16:42 19:55 07:53 WBC RBC 3.54 L MCV Neutrophils # APTT Sodium Chloride Carbon Dioxide BUN Creatinine Glucose POC Glucose (mg/dL) 147 H 170 H Hemoglobin A1c Calcium Total Protein Albumin Procalcitonin Urine Appearance Urine Protein Urine Ketones Urine Blood Ur Leukocyte Esterase Amorphous Sediment Urine Bacteria Hyaline Casts Urine Mucus Mycoplasma pneumon IgG 10/04/18 12:04 WBC RBC MCV Neutrophils # APTT Sodium Chloride Carbon Dioxide BUN Creatinine Glucose POC Glucose (mg/dL) 121 H Hemoglobin A1c Calcium Total Protein Albumin Procalcitonin Urine Appearance Urine Protein Urine Ketones Urine Blood Ur Leukocyte Esterase Amorphous Sediment Urine Bacteria Hyaline Casts Urine Mucus Mycoplasma pneumon IgG - Diagnostic Findings Chest x-ray: report reviewed, image reviewed CT scan - chest: report reviewed, image reviewed Assessment and Plan Assessment: Acute hypoxic respiratory failure Interstitial changes on CT scan concerning for NSIP versus HP Lifelong never smoker Seasonal and environmental allergies Hypertension Dyslipidemia Generalized weakness O2 to maintain saturation greater than or equal to 90% Check hypersensitivity pneumonitis panel, IgE, allergy panel Pulmicort, Dayanna's Prednisone 1 mg/kg to be slowly tapered over 2-[address] of the chest in 6 weeks Will likely need oxygen upon discharge Allergen avoidance Incentive spirometry and pulmonary hygiene Thank you for this consultation we will continue to follow along
[2018-10-04 12:50] VITALS: PULSE 77
--- NOTE | 2018-10-04 13:18 | ECHOF ---
Referral Reason:LVF MEASUREMENTS -------- HEIGHT: 149.9 cm WEIGHT: 69.9 kg BP: 130/73 RVIDd: 2.8 cm (< 3.3) IVSd: 1.2 cm (0.6 - 1.1) LVIDd: 4.6 cm (3.9 - 5.3) LVPWd: 1.2 cm (0.6 - 1.1) IVSs: 1.3 cm LVIDs: 3.1 cm LVPWs: 1.3 cm LA Diam: 3.4 cm (2.7 - 3.8) LAESV Index (A-L): 37.75 ml/m Ao Diam: 2.8 cm (2.0 - 3.7) AV Cusp: 1.6 cm (1.5 - 2.6) MV EXCURSION: 13.059 mm (> 18.000) MV EF SLOPE: 53 mm/s (70 - 150) EPSS: 0.6 cm MV E Fox: 0.84 m/s MV DecT: 174 ms MV A Fox: 1.04 m/s MV E/A Ratio: 0.81 RAP: 5.00 mmHg RVSP: 35.26 mmHg FINDINGS -------- Sinus rhythm. This was a technically good study. The left ventricular size is normal. There is borderline concentric left ventricular hypertrophy. Overall left ventricular systolic function is normal with, an EF between 60 - 65 %. The right ventricle is normal in size. LA is moderately dilated 34-39 ml/m2 The right atrium is normal in size. There is mild aortic valve sclerosis. There is mild aortic regurgitation. The mitral valve leaflets are mildly thickened. There is trace to mild mitral regurgitation. Mild tricuspid regurgitation present. There is mild pulmonary hypertension. The right ventricular systolic pressure, as measured by Doppler, is 35.26mmHg. There is no pulmonic regurgitation present. The aortic root size is normal. IVC Not well visulized. There is no pericardial effusion. CONCLUSIONS -------- 1. Sinus rhythm. 2. This was a technically good study. 3. The left ventricular size is normal. 4. There is borderline concentric left ventricular hypertrophy. 5. Overall left ventricular systolic function is normal with, an EF between 60 - 65 %. 6. The right ventricle is normal in size. 7. LA is moderately dilated 34-39 ml/m2 8. The right atrium is normal in size. 9. There is mild aortic valve sclerosis. 10. There is mild aortic regurgitation. 11. The mitral valve leaflets are mildly thickened. 12. There is trace to mild mitral regurgitation. 13. Mild tricuspid regurgitation present. 14. There is mild pulmonary hypertension. 15. The right ventricular systolic pressure, as measured by Doppler, is 35.26mmHg. 16. There is no pulmonic regurgitation present. 17. The aortic root size is normal. 18. IVC Not well visulized. 19. There is no pericardial effusion. [facility] RECREATION COORDINATOR: Diane Cole RDCS
[2018-10-04] MEDS: CYANOCOBALAMIN 500 MCG TAB PO SCH (14:29)
[2018-10-04] MEDS: MULTIVITAMINS, THERA 1 EACH TAB PO SCH (14:30)
[2018-10-05] MEDS ORDERED: predniSONE 20 MG TAB PO SCH (09:00)
--- NOTE | 2018-10-05 11:18 | CDI ---
Documentation Clarification Form Date: 10/05/2018 11:02:25 AM From: Yadira Staples Keri Wadsworth, [employer] Hours-8:30 am & 5 pm Karolina Admit Date: 09/28/2018 1:50:00 PM Patient Name: Claritza Coburn Visit Number: [id number] Discharge Date: 10/04/2018 3:19:00 PM ATTENTION: The Clinical Documentation Specialists (CDI) and [facility] Coding Staff appreciate your assistance in clarifying documentation. Please respond to the clarification below the line at the bottom and electronically sign. The CDI & [facility] Coding staff will review the response and follow-up if needed. Please note: Queries are made part of the Legal Health Record. If you have any questions, please contact the author of this message via ITS. Dr. Lamar Vyas Pneumonia was documented in your notes on ED, PNs, H&P, Consult History/Risk Factors: Respiratory Failure, Asthma Exac. X-ray: Interstitial lung disease Treatment: Abx In order to capture the severity of condition, please clarify if the condition signifies and you are treating for: Hypersensitivity PNA Interstitial PNA Viral Pneumonia, specify casual organism (if known) Bacterial PNA, specify causal organism (if known) Healthcare Acquired Pneumonia/Pneumonia, unspecified Other, please specify Unable to determine see dc summary MTDD
[2018-10-05 13:03] LABS: Alt. alternata IgE Class CLASS 0; Alternaria alternata IgE <0.35 kU/L (<0.35); Asperg. fumagatus IgE <0.35 kU/L (<0.35); Asperg. fumagatus IgE Class CLASS 0; Bermuda Grass IgE <0.35 kU/L (<0.35); Birch(Com.Silvr) IgE <0.35 kU/L (<0.35); Birch(Com.Silvr) IgE Class CLASS 0; Cat Epith & Dander IgE <0.35 kU/L (<0.35); Cat Epith & Dander IgE Class CLASS 0; Clad herbarum IgE <0.35 kU/L (<0.35); Cockroach IgE <0.35 kU/L (<0.35); Cottonwood IgE <0.35 kU/L (<0.35); Dermato. Pteronyssinus IgE <0.35 kU/L (<0.35); Dermato. farinae IgE <0.35 kU/L (<0.35); Dermato. farinae IgE Class CLASS 0; Dog Dander IgE <0.35 kU/L (<0.35); Elm IgE <0.35 kU/L (<0.35); Maple (Box Elder) IgE <0.35 kU/L (<0.35); Maple (Box Elder) IgE Class CLASS 0; Mountain Cedar IgE <0.35 kU/L (<0.35); Mountain Cedar IgE Class CLASS 0; Mouse Urine IgE Class CLASS 0; Nettle IgE <0.35 kU/L (<0.35); Nettle IgE Class CLASS 0; Oak IgE <0.35 kU/L (<0.35); Penicillium notatum IgE Class CLASS 0; Rough Marshelder IgE <0.35 kU/L (<0.35); Rough Marshelder IgE Class CLASS 0; Timothy Grass IgE <0.35 kU/L (<0.35); White Ash IgE Class CLASS 0
[2018-10-06 14:06] LABS: Alpha 1 Anti-Trypsin 134 mg/dL (90 - 200)
--- NOTE | 2018-10-07 15:26 | P.DS ---
Providers Date of admission: 09/28/18 13:50 Expected date of discharge: 10/04/18 Attending physician: Lamar Vyas Consults: 09/30/18 09:08 Consult Physician Routine Consulting Provider: Johnathan Morris Consult Reason/Comments: atypical pneumonia Do you want consulting provider notified?: Yes 10/04/18 08:26 Consult Physician Routine Consulting Provider: Delvin Olivia Consult Reason/Comments: hypoxia Do you want consulting provider notified?: Yes Primary care physician: Lamar Vyas [facility] Course: This is an 87-year-old female patient of Dr. Vyas with past medical history of hypertension, hyperlipidemia, mild persistent asthma, generalized osteoarthritis. Patient gives history of onset Thursday at 5 PM of chills lasted for 1-2 hours. This went away but returned on Thursday and she had chills again. She also has had a cough since with some shortness of breath. At that time she was given prescription for azithromycin which did not help. Her cough is productive with green or yellow sputum usually in the mornings but today her sputum is clear. She called the doctor's office on Thursday/Thursday but the office was closed. She came into the [facility] emergency center for evaluation. She was afebrile, blood pressure 119/69, pulse ox 84%. White count was 19.8, BUN 27 creatinine 1.11, blood sugar 105. Influenza testing was negative. Lactic acid normal. Chest x-ray shows new diffuse interstitial lung disease. Could represent viral or atypical pneumonias. There is a hilar prominence persist. Patient was admitted to the [facility] floor and started on azithromycin and ceftriaxone as well as nebulizer treatments and Pulmicort, IV steroids. Repeat chest x-ray this morning showed redemonstrated acute interstitial lung disease which could represent interstitial pulmonary edema, interstitial pneumonitis or atypical pneumonia. Interstitial opacities appear stable to slightly worse. High-resolution CT of the chest revealed reticular densities and upper to mid lung predominant groundglass. Some differential considerations include an SIP, hypersensitivity pneumonitis and atypical pneumonias. 09/30: Patient is found sitting up in a chair at the bedside. She continues to have some wheezing and shortness of breath. Consult with Dr. Morris has been added for atypical pneumonia. Mycoplasma, Legionella immunoglobulin E, hypersensitivity panel ordered. Sputum culture is in progress. Urine cultures and finalize with no growth. Blood culture no growth at 48 hours. She continues to have cough with minimal sputum production. Blood pressure is elevated and we will increase valsartan to 160 mg in the morning. 10/01: Patient states that her breathing status is much improved this morning from yesterday. She remains on oxygen is planning to ambulate today to check pulse ox. Pulse ox is currently 96% on 2 L nasal cannula. She is complaining of dry mouth. She denies any sputum production today but states she is having saliva. Mycoplasma IgG was positive and IgM negative. Dr. Morris is following recommend continuing ceftriaxone and azithromycin. Legionella testing remains pending. IgG normal. Solu-Medrol will be decreased to 40 mg every 8 hours and start oral prednisone tomorrow. Plan to monitor patient overnight and discharged home tomorrow. 10/02: Patient continued to the hypoxic when walking in the hallway where her oxygen drops to 80% on 2 L nasal cannula while patient is satting above 90% on 2 L nasal cannula on breast. Patient is still using accessory muscles and shortness of breath with minimal composition. Plan discussed with patient and nursing staff when we would like to continue with IV antibiotics per infectious disease recommendation continue pulmonary hygiene and aggressive use for incentive spirometer and oxygen to maintain her oxygenation above 90% at all the time patient will be evaluated by physical therapy and we will consider discharging based on clinical progress family requested patient stay in the hospital until her symptoms as improved. 10/03: Patient continued to the hypoxic when walking in the hallway where her oxygen drops to 80% on 2 L nasal cannula while patient is satting above 90% on 2 L nasal cannula on breast. Patient is still using accessory muscles and shortness of breath with minimal conversation. 2 daughters at the bedside have multiple concerns and questions all addressed. Given the patient's ongoing hypoxia I discussed with pulmonary to continue with current steroid dose continue with aggressive pulmonary hygiene and complete course of antibiotics during the hospital stay encourage ambulation and have physical and acute patient will therapy evaluated the patient encourage incentive spirometer and flutter valve and consider discharge tomorrow to home once oxygen is delivered or appropriate documentation were signed and provided to the case management in preparation for discharge in the morning 10/04: Today, patient was ambulated without oxygen and maintain a pulse ox of 90% . She has been seen by Dr. chery with recommendation for long prednisone taper over 2-3 months and repeat CAT scan and 6 weeks, allergen avoidance, incentive spirometry. A nebulizer will be arranged for the patient at home. Echocardiogram reveals EF 60-65% with borderline concentric left ventricular hypertrophy, mild aortic regurgitation and mild mitral regurgitation, mild pulmonary hypertension, mild tricuspid regurgitation. Dr. Morris has recommended Z-Vitaliy for home. The patient will be discharged home today in stable condition. Discharge diagnoses: 1. Acute hypoxic respiratory failure with pulse ox of 84% on room air secondary to nonspecific interstitial pneumonia versus hypersensitivity pneumonitis. 2. Mild persistent asthma exacerbated by aerosol sprays. 3. Hypertension. 4. Hyperlipidemia. 5. Generalized osteoarthritis, stable. 6. History of TIA. Discharge plan: home Impression and plan of care have been directed as dictated by the signing physician. Teetee Keating nurse practitioner acting as scribe for signing physician. Patient Condition at Discharge: Good Plan - Discharge Summary Discharge Rx Participant: No New Discharge Prescriptions: New Azithromycin [Zithromax] 500 mg PO DAILY #2 tab Famotidine [Pepcid] 20 mg PO BID #60 tab guaiFENesin [Mucinex] 600 mg PO Q12HR PRN #60 tablet.er PRN Reason: Congestion Ipratropium-Albuterol Nebulize [Duoneb 0.5 mg-3 mg/3 ml Soln] 3 ml INHALATION RT-QID 30 Days #1 box predniSONE 10 mg PO DAILY #190 tab Continue Calcium/Magnesium/Zinc [Kcgxibm-Dqsbclbdd-Mxng Tablet] 1 tab PO DAILY Aspirin EC [Ecotrin Low Dose] 162 mg PO HS Multivit-Min/FA/Lycopen/Lutein [Centrum Silver Tablet] 1 tab PO DAILY Atorvastatin [Lipitor] 10 mg PO HS ALPRAZolam [Xanax] 0.25 mg PO BID PRN PRN Reason: Anxiety Montelukast Sodium [Singulair] 10 mg PO HS Fluticasone Nasal [place] [Flonase Nasal [place]] 1 spray EA NOSTRIL HS Valsartan 80 mg PO HS Glucosamine-Chondr 500-400Mg 1 tab PO DAILY Carboxymethylcellulose Sodium [Refresh Tears] 1 drop BOTH EYES QID PRN PRN Reason: Dry Eye(S) Cyanocobalamin (Vitamin B-12) [Vitamin B-12] 1,000 mcg PO MOWEFR Discharge Medication List Aspirin EC [Ecotrin Low Dose] 162 mg PO HS 10/05/15 [History] Atorvastatin [Lipitor] 10 mg PO HS 10/05/15 [History] Calcium/Magnesium/Zinc [Kyyunvs-Wzyfborvv-Rwph Tablet] 1 tab PO DAILY 10/05/15 [ History] Multivit-Min/FA/Lycopen/Lutein [Centrum Silver Tablet] 1 tab PO DAILY 10/05/15 [ History] ALPRAZolam [Xanax] 0.25 mg PO BID PRN 11/18/15 [History] Carboxymethylcellulose Sodium [Refresh Tears] 1 drop BOTH EYES QID PRN 09/28/18 [History] Cyanocobalamin (Vitamin B-12) [Vitamin B-12] 1,000 mcg PO MOWEFR 09/28/18 [ History] Fluticasone Nasal [place] [Flonase Nasal [place]] 1 spray EA NOSTRIL HS 09/28/18 [ History] Glucosamine-Chondr 500-400Mg 1 tab PO DAILY 09/28/18 [History] Montelukast Sodium [Singulair] 10 mg PO HS 09/28/18 [History] Valsartan 80 mg PO HS 09/28/18 [History] Azithromycin [Zithromax] 500 mg PO DAILY #2 tab 10/04/18 [Rx] Famotidine [Pepcid] 20 mg PO BID #60 tab 10/04/18 [Rx] Ipratropium-Albuterol Nebulize [Duoneb 0.5 mg-3 mg/3 ml Soln] 3 ml INHALATION RT -QID 30 Days #1 box 10/04/18 [Rx] guaiFENesin [Mucinex] 600 mg PO Q12HR PRN #60 tablet.er 10/04/18 [Rx] predniSONE 10 mg PO DAILY #190 tab 10/04/18 [Rx] Follow up Appointment(s)/Referral(s): Lamar Vyas MD [Primary Care Provider] - 10/11/18 3:15 pm [facility],Equipment [NON-STAFF] - (Supplied Nebulizer) Keisha Maria DO [Doctor of Osteopathic Medicine] - 10/11/18 11:30 am [facility], [NON-STAFF] - 1-2 Days Patient Instructions/Handouts: COPD (Chronic Obstructive Pulmonary Disease) (DC ) Discharge Disposition: HOME WITH HOME HEALTH SERVICES
[2018-10-07 20:30] LABS: Alternaria Alternata IgG <2.0 mcg/mL (< 13.6); Aspergillus fumigatus IgG Not detected (Not detected); Aureobasidium pullulans IgG 2.5 mcg/mL (< 13.6); Phoma ssp. IgG <2.0 mcg/mL (< 6.6); Saccaharomospora viridis Not detected (Not detected); Saccaharopoly. rectivirgula Not detected (Not detected)
== END 2018-10-04 15:19 | disposition home health service (06) | DRG 196 ==
LOC: EC 10:59 → 4MS4W 13:50
PROVIDERS: ADMIT Family Medicine; ATTEND Family Medicine
PROC: 3E0234Z Introduction of Serum, Toxoid and Vaccine into Muscle, Percutaneous Approach (ICD-10-PCS; principal; 2018-09-28)
DX: J67.9 Hypersensitivity pneumonitis due to unspecified organic dust (principal); J96.01 Acute respiratory failure with hypoxia; J45.31 Mild persistent asthma with (acute) exacerbation; I27.20 Pulmonary hypertension, unspecified; I08.3 Combined rheumatic disorders of mitral, aortic and tricuspid valves; K21.9 Gastro-esophageal reflux disease without esophagitis; I10 Essential (primary) hypertension; E78.5 Hyperlipidemia, unspecified; M15.9 Polyosteoarthritis, unspecified; F41.9 Anxiety disorder, unspecified; J84.9 Interstitial pulmonary disease, unspecified; Z23 Encounter for immunization; Z79.899 Other long term (current) drug therapy; Z79.82 Long term (current) use of aspirin; Z86.73 Personal history of transient ischemic attack (TIA), and cerebral infarction without residual deficits; Z90.710 Acquired absence of both cervix and uterus; Z98.42 Cataract extraction status, left eye; Z98.41 Cataract extraction status, right eye; Z96.1 Presence of intraocular lens; Z96.653 Presence of artificial knee joint, bilateral; Z87.01 Personal history of pneumonia (recurrent); Z83.3 Family history of diabetes mellitus; Z80.9 Family history of malignant neoplasm, unspecified; Z82.49 Family history of ischemic heart disease and other diseases of the circulatory system
CPT/HCPCS: 36415; 71046; 71250; 80048; 80053; 81001; 82103; 82104; 82785; 83036; 83605; 84145; 85025; 85027; 85610; 85730; 86001; 86003; 86606; 86609; 86738; 87040; 87070; 87086; 87205; 87449; 87502; 93306; 94640; 94760; 96374; 99285

== ENCOUNTER → 2018-11-09 | Outpatient (CLI) | payer MEDICARE ==
--- NOTE | 2018-11-09 13:38 | CT ---
EXAMINATION TYPE: CT chest wo con DATE OF EXAM: 11/09/2018 COMPARISON: 09/29/2018 HISTORY: Follow up for pneumonia. CT DLP: 260.[address] of the chest was performed with lung and mediastinal window settings submitted. The la ck of contrast limits evaluation of the vascular, mediastinal and parenchymal structures including th e upper abdomen. LUNGS: There are persistent scattered groundglass infiltrates within the upper and midlung zones bila terally. Overall appearance is slightly improved relative to the prior examination. There is no evide nce for focal consolidation or volume loss. Basilar parenchymal scar or dependent atelectasis noted. Trace right-sided pleural effusion. Mild bilateral pleural thickening. No evidence for pulmonary nodu le or mass. Mild basilar subpleural fibrosis. MEDIASTINUM/PERLA: Thoracic aorta is of normal caliber with limited evaluation given lack of contrast . The heart is mildly enlarged. No evidence for mediastinal mass. No lymph nodes greater than 1cm . UPPER ABDOMEN: No significant abnormality is seen. OTHER: No significant other abnormality. IMPRESSION: 1. Scattered nonspecific groundglass infiltrates somewhat improved relative to the prior study.
== END | disposition home or self-care (01) ==
LOC: RADCTMAIN 13:08
PROVIDERS: ATTEND Internal Medicine
DX: R91.8 Other nonspecific abnormal finding of lung field (principal)
CPT/HCPCS: 71250

== ENCOUNTER → 2018-12-31 | Outpatient (CLI) | payer MEDICARE ==
--- NOTE | 2018-12-31 14:14 | CT ---
EXAMINATION TYPE: CT chest wo con DATE OF EXAM: 12/31/2018 COMPARISON: 11/09/2018 HISTORY: Cough and shortness of breath. Fatigue, body aches. CT DLP: 414 mGycm. Automated Exposure Control for Dose Reduction was Utilized. TECHNIQUE: CT scan of the thorax is performed without IV contrast. FINDINGS: LUNGS: There are persistent scattered groundglass infiltrates within the upper and midlung zones bila terally. Overall appearance is able relative to the prior examination. Bilateral small pleural effusi ons Basilar parenchymal scar or dependent atelectasis noted. Trace right-sided pleural effusion. Mild bilateral pleural thickening. No evidence for pulmonary nodule or mass. Interlobular septal thickeni ng noted. MEDIASTINUM: Lack of IV contrast is noted to limit evaluation for mediastinal and especially hilar ad enopathy. There are no definitive greater than 1 cm hilar or mediastinal lymph nodes. No cardiomega ly or pericardial effusion is seen. Atherosclerotic change of the aorta. The heart is enlarged there is coronary artery calcification. OTHER: There is a kyphosis of the vertebral column with multilevel severe degenerative disc disease. Hypertrophic changes noted.. IMPRESSION: 1. Stable groundglass areas of consolidation scattered throughout the lungs may be on the basis of a chronic pneumonitis or alveolitis. 2. Small bilateral pleural effusion 3. Chronic interstitial lung disease involving the lung bases most typical of idiopathic pulmonary fi brosis.
== END ==
LOC: RADCTMAIN 12:33
PROVIDERS: ATTEND Internal Medicine
DX: J84.112 Idiopathic pulmonary fibrosis (principal); J90 Pleural effusion, not elsewhere classified; R91.8 Other nonspecific abnormal finding of lung field
CPT/HCPCS: 71250